=== PATIENT | male | born 1945 | race Caucasian/White ===

== ENCOUNTER 2018-05-31 14:36 | Emergency (ER) | payer MEDICARE, SELFPAY ==
[2018-05-31 14:37] VITALS: BP 134/60; PULSE 76; RESP 15; TEMP 37.2; O2SAT 96; BMI 32.6
[2018-05-31] MEDS: Ipratropium/Albuterol Sulfate 3 ML AMPUL.NEB INHALATION (15:11)
[2018-05-31 15:13] VITALS: PULSE 62; RESP 18; O2SAT 96
--- NOTE | 2018-05-31 15:28 | RAD_ITS ---
STUDY: X-RAY CHEST REASON FOR EXAM: Male, 73 years old. Cough. Shortness of breath. TECHNIQUE: PA and lateral views of the chest. COMPARISON: Comparison is made with prior study dated October 01, 2017. FINDINGS: Mild increased markings at the lung bases worse on the right side. This is suggestive of bibasilar atelectasis and/or infiltrate. Follow-up is recommended. There is no demonstrated pleural abnormality. Normal size heart. Normal mediastinum and [place]. Normal visualized pulmonary arteries. There is atherosclerotic calcification of the aortic arch with tortuosity. There are diffuse degenerative changes of the visualized thoracic spine. Normal visualized ribs, clavicles, and shoulders. There is no demonstrated abnormality of the visualized soft tissue structures of the upper abdomen. RAD/Chest PA and Lateral IMPRESSION: Increased markings at the lung bases. This is suggestive bibasilar atelectasis and/or early infiltrates. Worse on the right side Electronically Signed: Jerzy Gomez MD at 15:50 EDT Tel [phone], Service support ,
--- NOTE | 2018-05-31 16:06 | ED.VISSUMM ---
- ER Visit Summary Date of Service: 05/31/18 Chief Complaint: Cough and shortness of breath History of Present Illness: The patient is a 73 M who presents with cough and shortness of breath that has been getting worse over the past 2 weeks. Patient states he was fishing 2 weeks ago and developed a cough afterwards. Patient went to an urgent care and was given a prescription for amoxicillin. Patient states he completed the course of amoxicillin but does not feel any better. Patient states that he was told he probably needs a chest x-ray if he did not feel better after completing the amoxicillin. Patient denies any chest pain. Patient admits to some subjective chills. Patient denies fevers. Patient states he is coughing up some yellow sputum. Physical Examination: Vital signs are stable. Patient is afebrile. Patient is in no acute distress. Heart was regular rate and rhythm. Lungs show some expiratory wheezing bilaterally. There is good respiratory effort noted. There are no retractions noted. Oral mucosa is pink and moist. Neck is supple. There is no JVD noted. Abdomen is soft and nontender. The remaining physical exam is within normal limits. Test Results: Chest x-ray shows bibasilar atelectasis and possible infiltrate, worse on the right. Emergency Department Course and Treatment: Given the patient's symptoms this is most likely an infiltrate. Patient was given a prescription for Levaquin. Patient was instructed to follow-up with his primary care physician in 5-7 days. Patient understood and was agreeable with the plan. All questions were answered. Disposition: Discharge home Impression: Community-acquired pneumonia This note was generated with [employer] dictation software. It may contain incorrect words, spelling, and punctuation that were not noted in review of the chart prior to signing ED Disposition - Plan for ED Patient: Disposition: Home or Assisted Living Chief Complaint: Shortness of Breath Diagnosis: Community acquired pneumonia Instructions: ED Pneumonia Adult Prescriptions: Levofloxacin [Levaquin] 750 mg PO DAILY #7 tab Referrals: Von Roach DO [Primary Care Provider] -
== END 2018-05-31 16:27 | disposition home or self-care (01) ==
PROVIDERS: Emergency Provider Emergency Medicine; Family Provider Family Medicine; PCP Family Medicine
DX: J18.9 Pneumonia, unspecified organism (principal); Z79.82 Long term (current) use of aspirin; Z79.899 Other long term (current) drug therapy
CPT/HCPCS: 71046; 94640; 99281

== ENCOUNTER → 2018-07-26 07:26 | Outpatient (CLI) | payer MEDICARE, SELFPAY ==
[2018-07-26 07:47] LABS: Absolute Lymphocyte Count 1.93 X10^3/ul (0.83-4.51); Absolute Neutrophil Count 3.4 X10^3/uL (2.0-7.7); Basophil# 0.03 X10^3/uL; Basophil% 0.5 % (0-1); Eosinophil# 0.17 X10^3/uL; Eosinophils% 2.8 % (0-5); Hemoglobin 13.2 g/dl (13.0-16.5); Lymphocyte # 1.93 X10^3/ul (4.0); Lymphocyte % 31.7 % (19-41); Mean Corpuscular Hgb 31.6 pg (27.0-32.0); Mean Corpuscular Volume 95.7 fL (80-94); Mean Platelet Vol. 9.4 fl (6.2-12.0); Monocyte# 0.59 X10^3/uL; Monocyte% 9.7 % (0-10); Neutrophil # 3.36 X10^3/uL (2.7-7.7); Neutrophil % 55.3 % (47-70); POSITIVE COUNT NO; POSITIVE DIFFERENTIAL NO; POSITIVE MORPHOLOGY NO; Platelet Count 254 K/mm3 (150-450); RBC Distribution Width SD 47.8 fl (35.1-43.9); Red Blood Count 4.18 M/mm3 (4.6-6.2); White Blood Count 6.1 K/mm3 (4.4-11.0)
[2018-07-26 08:32] LABS: ALB/GLOB Ratio 0.8 RATIO (0.9-2.4); AST(SGOT) 12 U/L (15-37); Alanine Aminotransfer ALT/SGPT 23 U/L (16-61); Albumin, Serum 3.1 g/dL (3.2-5.0); Alkaline Phosphatase 33 U/L (45-117); Anion Gap 10 (5-15); BUN 15 mg/dL (7-18); BUN/Creat Ratio 11.1 RATIO (10-20); Calcium,Total 8.4 mg/dL (8.5-10.1); Chloride 108 mmol/L (98-107); Cholesterol 128 mg/dL (200); Creatinine, Serum 1.35 mg/dL (0.70-1.30); EST Glomerular Filtration Rate 55 mL/min (>60); Est Glom Filt Rate - Afr Amer 66 mL/min (>60); Glucose 114 mg/dL (74-106); High Density Lipoprotein 55 mg/dL; PSA,Total - Annual Screen 2.97 ng/mL (0.00-4.00); Potassium 4.4 mmol/L (3.5-5.1); Protein, Total 7.1 g/dL (6.4-8.2); Sodium Level 143 mmol/L (136-145); Thyroid Stim Hormone (TSH) 0.74 uIU/mL (0.358-3.74); Triglycerides 81 mg/dL; Very Low Density Lipoprotein 16 mg/dL (5-40)
== END ==
PROVIDERS: Family Provider Family Medicine; PCP Family Medicine; Visit Provider Family Medicine
DX: Z00.00 Encounter for general adult medical examination without abnormal findings (principal); E78.5 Hyperlipidemia, unspecified; I25.10 Atherosclerotic heart disease of native coronary artery without angina pectoris; I48.91 Unspecified atrial fibrillation; Z12.5 Encounter for screening for malignant neoplasm of prostate; E66.9 Obesity, unspecified
CPT/HCPCS: 36415; 80053; 80061; 84153; 84443; 85025; G0103

== ENCOUNTER → 2018-08-15 06:13 | Outpatient (CLI) | payer MEDICARE, SELFPAY ==
--- NOTE | 2018-08-15 09:26 | STRESSREP ---
Stress Test Report Date: 08/15/2018 Procedure: Pharmacologic stress nuclear imaging study Indications: Shortness of breath/dyspnea; CAD; PCI Consent: Per the patient Procedure: The patient underwent pharmacologic (Regadenoson) evaluation with a peak heart rate of 101 beats per minute (69 predicted maximal heart rate) and a peak blood pressure of 124/62 mmHg. The baseline ECG demonstrated normal sinus rhythm. The peak pharmacologic ECG demonstrated no obvious ECG changes. There were no cardiac dysrhythmias pretest, during pharmacologic infusion, or recovery. There was no complaint of chest discomfort during pharmacologic infusion or recovery. The examination was discontinued secondary to completion of protocol. Impression: 1. Pharmacologic (Regadenoson) evaluation 2. Peak pharmacologic ECG with no obvious ECG changes. 3. There were no cardiac dysrhythmias pretest, during pharmacologic infusion, or recovery 4. Nuclear images pending Myocardial perfusion imaging study: Technique: The patient was injected with 14.4 millicuries of technetium 99m Cardiolite and subsequently rest SPECT Cardiolite nuclear imaging was obtained in the horizontal long, vertical long, and short axis views. The patient underwent pharmacologic (Regadenoson) evaluation with a peak heart rate of 101 beats per minute (69 % percent predicted maximal heart rate) and a peak blood pressure of 124/62 mmHg. The patient was injected with 44.1 millicuries of technetium 99m Cardiolite and subsequently stress SPECT Cardiolite nuclear imaging was obtained in the horizontal long, vertical long, and short axis views. A gated Cardiolite study at peak stress was obtained. Interpretation: Rest and stress SPECT Cardiolite nuclear imaging status post realignment, normalization, and attenuation correction demonstrate at rest and stress the appearance of extracardiac/gastrointestinal tracer uptake and at rest a small area of diminished tracer uptake near the distal anterior segments which appears to improve and/or normalize following stress. There is end systolic thickening and brightening. The gated Cardiolite study demonstrates myocardial thickening and inward wall motion. The reported LVEF is 78 %. Impression: 1. Rest and stress SPECT Cardiolite nuclear imaging demonstrate findings compatible with extracardiac/gastrointestinal tracer uptake as well as myocardial perfusion changes at rest which appear to improve and/or normalize following stress appearing compatible shifting soft tissue attenuation/artifact with no myocardial perfusion changes considered diagnostic for associated stress-induced myocardial ischemia. 2. The gated Cardiolite study reports an LVEF of 78 %. This note was generated with Dragon dictation software. It may contain incorrect words, spelling, and punctuation that were not noted in checking the note before signing.
== END ==
PROVIDERS: Family Provider Family Medicine; PCP Family Medicine; Referring Provider Nurse Practitioner Family; Visit Provider Nurse Practitioner Family
DX: R07.9 Chest pain, unspecified (principal); I25.10 Atherosclerotic heart disease of native coronary artery without angina pectoris; R42 Dizziness and giddiness; I10 Essential (primary) hypertension; Z95.5 Presence of coronary angioplasty implant and graft; R06.09 Other forms of dyspnea
CPT/HCPCS: 78452; 93017; A9500; A4216; J2785

== ENCOUNTER → 2018-09-12 10:20 | Outpatient (CLI) | payer MEDICARE, SELFPAY ==
--- NOTE | 2018-09-12 10:22 | RAD_ITS ---
STUDY: X-RAY CHEST REASON FOR EXAM: Male, 73 years old. Recent pneumonia, dyspnea TECHNIQUE: PA and lateral views of the chest. COMPARISON: Prior study of 05/31/2018 FINDINGS: There are prominent fibrotic interstitial markings of the lung bases. There is a 1.1 cm calcified granuloma of the right mid lung field, stable in the interval. There is hemidiaphragmatic findings suggestive of COPD. Normal size heart. Normal mediastinum and [place]. Normal visualized pulmonary arteries. There are calcified plaques of the aortic arch. There are diffuse degenerative changes of the visualized thoracic spine. Normal visualized ribs, clavicles, and shoulders. There is a fusion plate overlying the lower cervical region. There is no demonstrated abnormality of the visualized soft tissue structures of the upper abdomen. RAD/Chest PA and Lateral IMPRESSION: 1. Prominent interstitial fibrotic markings of the lung bases. 2. 1.1 cm calcified granuloma of the right mid lung field. 3. Calcified plaques of the aortic arch. 4. Fusion plate overlying the lower cervical region. 5. Diffuse degenerative changes of the thoracic spine. 6. No acute cardiopulmonary disease process is seen. Findings are similar to the previous study. Electronically Signed: Ruel Cintron MD at 17:10 EDT , Service support ,
[2018-09-12 11:19] LABS: Absolute Neutrophil Count 3.8 X10^3/uL (2.0-7.7); Basophil# 0.02 X10^3/uL; Basophil% 0.3 % (0-1); Eosinophil# 0.14 X10^3/uL; Eosinophils% 2.2 % (0-5); Hematocrit 38.6 % (40-54); Hemoglobin 12.3 g/dl (13.0-16.5); Lymphocyte % 27.2 % (19-41); Mean Corp Hgb Conc 31.9 g/gl (32-36); Mean Corpuscular Volume 97.2 fL (80-94); Mean Platelet Vol. 10.5 fl (6.2-12.0); Monocyte# 0.58 X10^3/uL; Monocyte% 9.3 % (0-10); Neutrophil # 3.81 X10^3/uL (2.7-7.7); Platelet Count 198 K/mm3 (150-450); RBC Distribution Width CV 14.3 % (11.6-14.6); RBC Distribution Width SD 51.1 fl (35.1-43.9); Red Blood Count 3.97 M/mm3 (4.6-6.2); White Blood Count 6.3 K/mm3 (4.4-11.0)
[2018-09-12 11:20] LABS: POSITIVE COUNT NO; POSITIVE DIFFERENTIAL NO; POSITIVE MORPHOLOGY NO
[2018-09-12 11:42] LABS: Anion Gap 7 (5-15); BUN 15 mg/dL (7-18); BUN/Creat Ratio 10.2 RATIO (10-20); Calcium,Total 8.1 mg/dL (8.5-10.1); Chloride 108 mmol/L (98-107); Creatinine, Serum 1.47 mg/dL (0.70-1.30); EST Glomerular Filtration Rate 50 mL/min (>60); Est Glom Filt Rate - Afr Amer 60 mL/min (>60); Glucose 101 mg/dL (74-106); Potassium 4.1 mmol/L (3.5-5.1); Sodium Level 142 mmol/L (136-145)
[2018-09-12 11:51] LABS: BNP,B-Type NATRIURETIC PEPTIDE 249.6 pg/mL (0-100)
== END ==
PROVIDERS: Family Provider Family Medicine; PCP Family Medicine; Referring Provider Physician Assistant Medical; Visit Provider Physician Assistant Medical
DX: I10 Essential (primary) hypertension (principal); I25.10 Atherosclerotic heart disease of native coronary artery without angina pectoris; I48.0 Paroxysmal atrial fibrillation; R06.09 Other forms of dyspnea
CPT/HCPCS: 36415; 71046; 80048; 83880; 85025

== ENCOUNTER → 2018-09-25 06:34 | Outpatient (CLI) | payer MEDICARE, SELFPAY ==
--- NOTE | 2018-09-25 07:30 | ECHOD_ITS ---
Reason For Study: SOB Procedure This was a 2D Doppler, Color Flow transthoracic echocardiogram. The exam was of adequate technical quality. Exam performed in department. Left Ventricle Normal LV size. Left ventricular systolic function is normal. The estimated ejection fraction is 65 %. No regional wall motion abnormalities noted. Right Ventricle Normal RV size. Normal systolic function. Atria The left atrium is mildly enlarged. Normal right atrium. No doppler evidence for ASD. Mitral Valve There is no mitral annular calcification. Normal mitral valve. Mild (1+) mitral valve insufficiency. Tricuspid Valve Normal tricuspid valve. Mild tricuspid valve insufficiency. Right ventricular systolic pressure estimated to be 28 mmHg. Aortic Valve Trisinus/trileaflet aortic valve. Mild focal aortic valve thickening. Mild focal aortic valve calcification. Aortic sclerosis, no stenosis. Pulmonic Valve The pulmonic valve is not well visualized. Great Vessels Normal sized aortic root. Pericardium/Pleural No pericardial effusion. MMode/2D Measurements & Calculations LVIDd: 4.5 cm IVSd: 0.86 cm LVOT diam: 2.1 cm LVIDs: 2.5 cm LVPWd: 0.92 cm LVOT area: 3.4 cm2 RVDd: 3.6 cm FS: 44.7 % Ao root diam: 3.0 cm LAV(MOD-bp): 68.5 ml EDV(MOD-sp4): 91.8 ml LAV(MOD-bp) Indexed: 32.5 ml/m2 ESV(MOD-sp4): 29.4 ml LAV(MOD-sp2): 52.1 ml EF(MOD-sp4): 68.0 % LAV(MOD-sp4): 71.2 ml EDV(MOD-sp2): 101.9 ml SV(MOD-sp4): 62.4 ml SV(MOD-sp2): 62.9 ml EF(MOD-sp2): 61.7 % LA A4 area: 24.0 cm2 LA dimension(2D): 3.9 cm RA A4 area: 15.7 cm2 Doppler Measurements & Calculations MV E max rico: 76.7 cm/sec Lat Peak E' Rico: 11.4 cm/sec Med Peak E' Rico: 9.6 cm/sec MV A max rico: 42.0 cm/sec E/E' lat: 6.7 E/E' med: 8.0 MV E/A: 1.8 Ao V2 max: 211.2 cm/sec LV V1 max: 132.5 cm/sec SV(LVOT): 114.2 ml Ao max P.8 mmHg LV V1 max P.0 mmHg Ao V2 mean: 139.0 cm/sec LV V1 mean P.6 mmHg Ao mean P.7 mmHg LV V1 mean: 90.2 cm/sec Ao V2 VTI: 51.1 cm LV V1 VTI: 33.3 cm ELIZABETH(I,D): 2.2 cm2 ELIZABETH(V,D): 2.1 cm2 PA V2 max: 105.8 cm/sec TR max rico: 246.6 cm/sec TR max P.5 mmHg Interpretation Summary Left ventricular systolic function is normal. The estimated ejection fraction is 65 %. The left atrium is mildly enlarged. Mild (1+) mitral valve insufficiency. Mild tricuspid valve insufficiency. Aortic sclerosis, no stenosis. Right ventricular systolic pressure estimated to be 28 mmHg. Transmitral diastolic flow velocities suggest diastolic dysfunction (pseudonormal pattern). Ordering Physician: Mayelin Schultz/Luis Reese Referring Physician: Mayelin Schultz Performed By: Nicky Zhang RDCS
--- NOTE | 2018-09-25 13:16 | PFT ---
INTRODUCTION: The patient is a 73-year-old male that presents for pulmonary function testing secondary to a diagnosis of dyspnea on exertion. Respiratory therapy reports good patient effort. Bronchodilators were used during testing. INTERPRETATION: Forced expiration spirometry demonstrates no evidence of a large airways obstructive ventilatory defect. There was no significant response to aerosolized bronchodilators. Spirograms are of good quality and plateau normally. Body plethysmography was performed and reveals lung volumes to be within normal limits. Diffusing capacity by single breath CO is also within normal limits at 96% of predicted. IMPRESSION: Grossly normal pulmonary function testing.
== END ==
PROVIDERS: Family Provider Family Medicine; PCP Family Medicine; Referring Provider Physician Assistant Medical; Visit Provider Physician Assistant Medical
DX: R06.09 Other forms of dyspnea (principal); I10 Essential (primary) hypertension; I25.10 Atherosclerotic heart disease of native coronary artery without angina pectoris; I48.0 Paroxysmal atrial fibrillation
CPT/HCPCS: 93306; 94060; 94726; 94729

== ENCOUNTER → 2018-09-26 15:36 | Outpatient (CLI) | payer MEDICARE, SELFPAY ==
[2018-09-26 16:19] LABS: International Normalized Ratio > 19.5; Prothrombin Time (Protime)PT. > 120.0 SECONDS (11.7-14.9)
== END ==
PROVIDERS: Family Provider Family Medicine; PCP Family Medicine; Referring Provider Internal Medicine Cardiovascular Disease; Visit Provider Internal Medicine Cardiovascular Disease
DX: Z79.01 Long term (current) use of anticoagulants (principal)
CPT/HCPCS: 36415; 85610

== ENCOUNTER 2018-09-26 17:25 | Emergency (ER) | payer MEDICARE, SELFPAY ==
[2018-09-26 17:26] VITALS: BP 134/64; PULSE 50; RESP 17; TEMP 36.9; O2SAT 98; BMI 34.4
--- NOTE | 2018-09-26 17:42 | ED.VISSUMM ---
- ER Visit Summary Date of Service: 09/26/18 Chief Complaint: Elevated INR History of Present Illness: The patient is a 73 M who has an elevated INR. He was switched from Eliquis to warfarin 1 month ago. He was taking it twice a day instead of daily. He had his INR checked today and it was 19. He has had some bleeding from his mouth and gums when he wakes up in the morning. He does admit to some hematuria. He denies any other bleeding. Denies any other symptoms. Physical Examination: Vital signs reviewed. HEENT exam unremarkable. There is no bleeding from the mouth or gums at this time. Heart is regular rate and rhythm without murmurs. Lungs are clear to auscultation. Abdomen is soft and nontender. Extremities reveal no edema. Skin exam normal. Neurologic exam normal. Test Results: Hemoglobin normal. Creatinine 1.49. INR greater than 19.5. Urinalysis reveals trace blood Emergency Department Course and Treatment: Patient was treated with vitamin K here. He has no bleeding at this time. According to guidelines he should cease his warfarin and have 1 dose of vitamin K. He does not want to stay in the hospital. I feel that that is reasonable because he has no bleeding and looks well. He will call his cardiology office tomorrow for follow-up INR. Treatment Plan: [] Disposition: Discharge Impression: Elevated INR Medication error by patient This note was generated with [employer] dictation software. It may contain incorrect words, spelling, and punctuation that were not noted in review of the chart prior to signing ED Disposition - Plan for ED Patient: Chief Complaint: Abn Labs Referrals: Von Roach DO [Primary Care Provider] -
[2018-09-26 18:06] LABS: Glucose, Dipstick Normal (Normal); Ketone-Dipstick 5 mg/dl (Negative); Leukocyte Esterase-Dipstick 25 /ul (Negative); Nitrite-Dipstick Negative (Negative); Occult Blood-Urine 50 /ul (Negative); Protein-Dipstick 30 mg/dl (Negative); Specific Gravity, Urine 1.025 (1.002-1.030); Urine Urobilinogen 1 mg/dl (Normal)
[2018-09-26 18:13] LABS: Absolute Lymphocyte Count 1.69 X10^3/ul (0.83-4.51); Absolute Neutrophil Count 2.9 X10^3/uL (2.0-7.7); Basophil# 0.03 X10^3/uL; Basophil% 0.6 % (0-1); Eosinophil# 0.19 X10^3/uL; Eosinophils% 3.6 % (0-5); Hematocrit 42.4 % (40-54); Hemoglobin 13.9 g/dl (13.0-16.5); Lymphocyte # 1.69 X10^3/ul (4.0); Lymphocyte % 31.8 % (19-41); Mean Corp Hgb Conc 32.8 g/gl (32-36); Mean Corpuscular Hgb 31.4 pg (27.0-32.0); Mean Corpuscular Volume 95.9 fL (80-94); Mean Platelet Vol. 9.8 fl (6.2-12.0); Monocyte# 0.56 X10^3/uL; Monocyte% 10.5 % (0-10); Neutrophil # 2.85 X10^3/uL (2.7-7.7); Neutrophil % 53.5 % (47-70); Platelet Count 194 K/mm3 (150-450); RBC Distribution Width CV 14.2 % (11.6-14.6); RBC Distribution Width SD 50.4 fl (35.1-43.9); Red Blood Count 4.42 M/mm3 (4.6-6.2); White Blood Count 5.3 K/mm3 (4.4-11.0)
[2018-09-26 18:16] LABS: POSITIVE COUNT NO; POSITIVE DIFFERENTIAL NO; POSITIVE MORPHOLOGY NO
[2018-09-26 18:20] LABS: Color, Urine Yellow (Yellow); Urine Bilirubin Dipstick 1 mg/dL (Negative); Urine Clarity Clear (Clear)
[2018-09-26 18:22] LABS: Red Blood Cells-Urine 0-5 SEEN /hpf (0-5); Squamous Epithelial Cells - UA 0-5 SEEN /hpf (0-5); White Blood Cells 0-5 SEEN /hpf (0-5)
[2018-09-26 18:23] LABS: Bacteria RARE /hpf (None Seen); Mucous, Urine 1+ /hpf (<or=2+)
[2018-09-26 18:32] LABS: Anion Gap 6 (5-15); BUN 16 mg/dL (7-18); BUN/Creat Ratio 10.7 RATIO (10-20); Calcium,Total 8.3 mg/dL (8.5-10.1); Chloride 109 mmol/L (98-107); Creatinine, Serum 1.49 mg/dL (0.70-1.30); EST Glomerular Filtration Rate 49 mL/min (>60); Est Glom Filt Rate - Afr Amer 59 mL/min (>60); Estimated Creatinine Clearance 40.67 ml/min; Glucose 101 mg/dL (74-106); Potassium 3.9 mmol/L (3.5-5.1); Sodium Level 141 mmol/L (136-145)
[2018-09-26 19:06] LABS: Prothrombin Time (Protime)PT. > 120.0 SECONDS (11.7-14.9)
[2018-09-26 19:11] LABS: International Normalized Ratio > 19.5
--- NOTE | 2018-09-26 19:14 | ED.RN ---
LAB CALLED FOR PT GREATER THEN 120 AND INR GREATER THEN 19.5. AWARE. LAB STATES RESULTS ARE THE SAME EARLIER
--- NOTE | 2018-09-26 19:36 | ED.DEP ---
ED Disposition - Plan for ED Patient: Disposition: Home or Assisted Living Chief Complaint: Abn Labs Instructions: Taking?Coumadin Referrals: Von Roach DO [Primary Care Provider] - Additional Instructions: Do not take warfarin Call cardiology office tomorrow for a follow-up INR
[2018-09-26 20:18] VITALS: BP 123/65; PULSE 54; PULSE 55; RESP 16; O2SAT 96; O2SAT 97
[2018-09-26] MEDS: Phytonadione (Vit K) 10 MG/ML Ampul PO (20:44)
== END 2018-09-26 20:46 | disposition home or self-care (01) ==
PROVIDERS: Emergency Provider Emergency Medicine; Family Provider Family Medicine; PCP Family Medicine
DX: T45.511A Poisoning by anticoagulants, accidental (unintentional), initial encounter (principal); R79.1 Abnormal coagulation profile; I48.0 Paroxysmal atrial fibrillation; Z79.01 Long term (current) use of anticoagulants; Y92.009 Unspecified place in unspecified non-institutional (private) residence as the place of occurrence of the external cause
CPT/HCPCS: 36415; 80048; 81001; 85025; 85610; 99285; A4216

== ENCOUNTER → 2018-09-27 13:16 | Outpatient (CLI) | payer MEDICARE, SELFPAY ==
[2018-09-27 13:45] LABS: Prothrombin Time (Protime)PT. 22.6 SECONDS (11.7-14.9)
== END ==
PROVIDERS: Family Provider Family Medicine; PCP Family Medicine; Referring Provider Internal Medicine Cardiovascular Disease; Visit Provider Internal Medicine Cardiovascular Disease
DX: I48.0 Paroxysmal atrial fibrillation (principal); Z79.01 Long term (current) use of anticoagulants
CPT/HCPCS: 36415; 85610

== ENCOUNTER 2018-09-30 13:38 | Outpatient (RCR) | payer MEDICARE, SELFPAY ==
[2018-09-30 17:18] LABS: International Normalized Ratio 2.3; Prothrombin Time (Protime)PT. 25.5 SECONDS (11.7-14.9)
== END 2018-10-18 09:49 ==
LOC: LAB 13:38
PROVIDERS: Family Provider Family Medicine; PCP Family Medicine; Referring Provider Internal Medicine Cardiovascular Disease; Visit Provider Internal Medicine Cardiovascular Disease
DX: I48.0 Paroxysmal atrial fibrillation (principal); I10 Essential (primary) hypertension; Z79.01 Long term (current) use of anticoagulants
CPT/HCPCS: 36415; 85610

== ENCOUNTER 2018-10-07 11:51 | Outpatient (RCR) | payer MEDICARE, SELFPAY ==
[2018-10-07 14:13] LABS: International Normalized Ratio 2.2; Prothrombin Time (Protime)PT. 24.4 SECONDS (11.7-14.9)
== END 2018-10-18 09:50 | disposition home or self-care (01) ==
LOC: LAB 11:51
PROVIDERS: Family Provider Family Medicine; PCP Family Medicine; Referring Provider Internal Medicine Cardiovascular Disease; Visit Provider Internal Medicine Cardiovascular Disease
DX: I48.0 Paroxysmal atrial fibrillation (principal); I10 Essential (primary) hypertension; Z79.01 Long term (current) use of anticoagulants
CPT/HCPCS: 36415; 85610

== ENCOUNTER → 2018-10-28 10:23 | Outpatient (CLI) | payer MEDICARE, SELFPAY ==
[2018-10-24 09:14] VITALS: BMI 35.5
[2018-10-28 11:45] LABS: International Normalized Ratio 1.6; Prothrombin Time (Protime)PT. 19.4 SECONDS (11.7-14.9)
== END ==
PROVIDERS: Family Provider Family Medicine; PCP Family Medicine; Referring Provider Physician Assistant Medical; Visit Provider Physician Assistant Medical
DX: I48.0 Paroxysmal atrial fibrillation (principal); I10 Essential (primary) hypertension; Z79.01 Long term (current) use of anticoagulants
CPT/HCPCS: 36415; 85610

== ENCOUNTER 2018-11-15 08:12 | Outpatient (RCR) | payer MEDICARE, SELFPAY ==
[2018-10-24 09:14] VITALS: BMI 35.5
[2018-10-24 11:32] LABS: International Normalized Ratio 1.7; Prothrombin Time (Protime)PT. 20.2 SECONDS (11.7-14.9)
[2018-11-05 13:13] LABS: International Normalized Ratio 1.9; Prothrombin Time (Protime)PT. 21.5 SECONDS (11.7-14.9)
== END 2018-11-15 09:00 | disposition home or self-care (01) ==
LOC: LAB 08:12
PROVIDERS: Family Provider Family Medicine; PCP Family Medicine; Referring Provider Physician Assistant Medical; Visit Provider Physician Assistant Medical
DX: I40.8 Other acute myocarditis (principal); I10 Essential (primary) hypertension; Z79.01 Long term (current) use of anticoagulants
CPT/HCPCS: 36415; 85610

== ENCOUNTER → 2019-04-10 | Outpatient (CLI) | payer MEDICARE, SELFPAY ==
[2019-04-10 09:22] VITALS: BMI 35.5
[2019-04-10 11:07] LABS: AST(SGOT) 15 U/L (15-37); Alanine Aminotransfer ALT/SGPT 36 U/L (16-61); Albumin, Serum 2.9 g/dL (3.2-5.0); Alkaline Phosphatase 38 U/L (45-117); Bilirubin, Direct 0.12 mg/dL (0.00-0.30); Globulin 3.9 g/dL (2.2-4.2); Protein, Total 6.8 g/dL (6.4-8.2); T4 Free Direct 1.33 ng/dL (0.76-1.46); Thyroid Stim Hormone (TSH) 0.71 uIU/mL (0.358-3.74)
== END | disposition home or self-care (01) ==
PROVIDERS: Family Provider Family Medicine; PCP Family Medicine; Referring Provider Physician Assistant Medical; Visit Provider Physician Assistant Medical
DX: R06.09 Other forms of dyspnea (principal); I48.0 Paroxysmal atrial fibrillation; Z79.899 Other long term (current) drug therapy
CPT/HCPCS: 36415; 80076; 84439; 84443

== ENCOUNTER → 2019-09-22 | Outpatient (CLI) | payer MEDICARE, SELFPAY ==
[2019-09-22 09:31] VITALS: BMI 34.7
--- NOTE | 2019-09-22 10:31 | RAD_ITS ---
STUDY: X-RAY CHEST REASON FOR EXAM: Male, 74 years old. Amiodarone therapy since 2012 TECHNIQUE: PA and lateral views of the chest. COMPARISON: Prior study of 09/12/2018 FINDINGS: There is prominence of the interstitial pattern of the right lung base. Small calcified granuloma of the right midlung field. There is no demonstrated pleural abnormality. Normal size heart. Normal mediastinum and [place]. Normal visualized pulmonary arteries. There are calcified plaques of the thoracic aorta. There are diffuse degenerative changes of the visualized thoracic spine. Normal visualized ribs, clavicles, and shoulders. A fusion plate is seen projecting over the lower cervical spine. There is no demonstrated abnormality of the visualized soft tissue structures of the upper abdomen. RAD/Chest PA and Lateral IMPRESSION: 1. Prominent interstitial pattern of the right lung base, stable in the interval. 2. Small calcified granuloma of the right midlung field. 3. Calcified plaques of the thoracic aorta. 4. Fusion plate projecting over the lower cervical spine. Electronically Signed: Ruel Cintron MD at 22:31 EST , Service support ,
[2019-09-22 12:45] LABS: AST(SGOT) 16 U/L (15-37); Alanine Aminotransfer ALT/SGPT 27 U/L (16-61); Albumin, Serum 2.9 g/dL (3.2-5.0); Alkaline Phosphatase 34 U/L (45-117); Bilirubin, Direct 0.14 mg/dL (0.00-0.30); Cholesterol 144 mg/dL (200); High Density Lipoprotein 49 mg/dL; Protein, Total 6.9 g/dL (6.4-8.2); T4 Free Direct 1.38 ng/dL (0.76-1.46); Thyroid Stim Hormone (TSH) 0.71 uIU/mL (0.358-3.74); Triglycerides 76 mg/dL; Very Low Density Lipoprotein 15 mg/dL (5-40)
== END | disposition home or self-care (01) ==
PROVIDERS: Family Provider Family Medicine; PCP Family Medicine; Referring Provider Internal Medicine Cardiovascular Disease; Visit Provider Internal Medicine Cardiovascular Disease
DX: E78.00 Pure hypercholesterolemia, unspecified (principal); Z79.899 Other long term (current) drug therapy
CPT/HCPCS: 36415; 71046; 80061; 80076; 84439; 84443

== ENCOUNTER → 2019-09-30 | Outpatient (CLI) | payer MEDICARE, SELFPAY ==
[2019-09-22 09:31] VITALS: BMI 34.7
--- NOTE | 2019-09-30 14:27 | PFTCOMP_ITS ---
COMPLETE PULMONARY FUNCTION TEST INTERPRETATION Brief HPI: Patient is a 74 year old male, currently under the care of Dr. Reese, who presents to [facility] for complete pulmonary function tests secondary to diagnosis of high risk med use. Respiratory therapist reports good effort and reproducible results. Interpretation: Forced expiration spirometry shows no large airways obstructive ventilatory defect with an FEV1 of 115% predicted. There is no significant bronchodilator response by strict ATS criteria. Spirograms are of good quality and plateau normally. The respiratory flow volume loop shows a normal pattern. Lung volumes by body plethysmography show a normal total lung capacity at 6.71 L, 113% predicted. All other lung volumes are within normal limits. Diffusion capacity by carbon monoxide is normal at 79% predicted. The airway resistance is normal. Compared to previous pulmonary function tests from 09/25/2018, there is been a significant decrease in DLCO by 17%. Impression: Pulmonary function tests are grossly within normal limits, but there has been a 17% decrease in DLCO compared to previous study. Consider chest imaging if patient is still on amiodarone. Pulmonary edema would also be a consideration.
== END | disposition home or self-care (01) ==
LOC: PSN 07:10
PROVIDERS: Family Provider Family Medicine; PCP Family Medicine; Referring Provider Internal Medicine Cardiovascular Disease; Visit Provider Internal Medicine Cardiovascular Disease
DX: Z79.899 Other long term (current) drug therapy (principal)
CPT/HCPCS: 94060; 94726; 94729

== ENCOUNTER 2020-07-08 08:18 | Observation (INO) | payer MEDICARE, SELFPAY ==
[2019-09-22 09:31] VITALS: BMI 34.7
[2020-07-08] VITALS (9 sets, daily range): BP systolic 142–169; BP diastolic 65–111; PULSE 52–75; RESP 11–16; TEMP 36.2–36.6; O2SAT 96–98; BMI 35.5; BMI 34.7
--- NOTE | 2020-07-08 08:24 | CT_ITS ---
STUDY: CT BRAIN WITHOUT CONTRAST REASON FOR EXAM: Male, 75 years old. RT SIDED FACIAL DROOP, SLURRED SPEECH RADIATION DOSAGE (If Supplied By Facility): CTDIvol = ( 44.99 ) mGy, DLP = ( 779.24 ) mGycm TECHNIQUE: Transaxial CT imaging of the brain was performed without administration of intravenous contrast material. Individualized dose optimization techniques were used for this CT. COMPARISON: No relevant priors. FINDINGS: Normal soft tissue structures. Normal calvarium. There is mild cerebral atrophy with widening of the extra-axial spaces and ventricular dilatation. There are areas of decreased attenuation within the white matter tracts of the supratentorial brain, consistent with microvascular disease changes. Normal basal ganglia and thalami. Normal brainstem. Normal cerebellum. There is no intracranial hemorrhage. There are no findings of an acute ischemic infarction. Normal visualized paranasal sinuses. CT/Brain/Head without Contrast IMPRESSION: Chronic involutional changes of the brain. Electronically Signed: Esau Mcbride MD at 8:42 EDT Tel , Service support ,
--- NOTE | 2020-07-08 08:24 | EKG12_ITS ---
Test Reason : Blood Pressure : / mmHG Vent. Rate : 063 BPM Atrial Rate : 063 BPM P-R Int : 214 ms QRS Dur : 096 ms QT Int : 454 ms P-R-T Axes : 060 033 052 degrees QTc Int : 464 ms Sinus rhythm with 1st degree A-V block Otherwise normal ECG Confirmed by DANIEL ESCOBAR, YANNA ([id number]), newspaper editor managing MILLI SHEPPARD ([id number]) on 07/16/2020 11:15:40 A M Referred By: MARIAN Confirmed By:ANNIKA SANCHEZ MD
--- NOTE | 2020-07-08 08:27 | CT_ITS ---
STUDY: CTA HEAD AND NECK WITH CONTRAST REASON FOR EXAM: Male, 75 years old. stroke. Rt facial droop RADIATION DOSAGE (If Supplied By Facility): CTDIvol = ( 21.26 ) mGy, DLP = ( 619.43 ) mGycm TECHNIQUE: CT angiography was performed with a multi-detector CT scanner. Data acquisition was obtained from the skull base through the vertex following intravenous administration of Isovue 300 100ml. MIP images were reconstructed from the axial data set. Post-processing of the angiographic images was performed, with multiplanar reformation and 3D reconstruction. Individualized dose optimization techniques were used for this CT. COMPARISON: No relevant priors. FINDINGS: Normal bilateral petrous carotid arteries. There is calcified plaque formation of the right cavernous carotid artery, without a cross-sectional luminal stenosis. There is calcified plaque formation of the left cavernous carotid artery, without a cross-sectional luminal stenosis. Normal right A1 segments of the anterior cerebral artery. Normal left A1 segments of the anterior cerebral artery. Normal intact anterior communicating artery (ACOM). Normal bilateral A2 segments of the anterior cerebral arteries. Normal right M1 and M2 segments of the middle cerebral arteries, with a normal M1 bifurcation. Normal left M1 and M2 segments of the middle cerebral arteries, with a normal M1 bifurcation. Normal right posterior communicating artery (PCOM). Normal left posterior communicating artery (PCOM). Normal bilateral vertebral arteries. Normal basilar artery with a normal basilar bifurcation. The visualized bilateral superior cerebellar (SCA) arteries are normal. Normal bilateral P1, P2 and visualized P3 segments of the posterior cerebral arteries. There is no demonstrated aneurysm of the [place]. There is no demonstrated abnormality of the visualized brain. AORTIC ARCH: Normal visualized aortic arch. Normal origins of the brachiocephalic, left common carotid, and left subclavian arteries. RIGHT CAROTID ARTERIES: Normal right common carotid artery (CCA). There is mild atherosclerotic plaque formation with minimal narrowing of the right carotid bulb. Normal origin of the right internal carotid (ICA) artery without a hemodynamically significant stenosis. Normal visualized cervical portion of the right internal carotid artery. Normal origin of the right external carotid artery (ECA). LEFT CAROTID ARTERIES: Normal left common carotid artery (CCA). There is mild atherosclerotic plaque formation with minimal narrowing of the left carotid bulb. Normal origin of the left internal carotid (ICA) artery without a hemodynamically significant stenosis. Normal visualized cervical portion of the left internal carotid artery. Normal origin of the left external carotid artery (ECA). VERTEBRAL ARTERIES: Normal bilateral vertebral arteries. CT/CTA Head AND Neck W/ Contrast IMPRESSION: Normal CTA Head and neck with contrast. Electronically Signed: Esau Mcbride MD at 8:51 EDT Tel , Service support ,
[2020-07-08 08:52] LABS: Absolute Lymphocyte Count 1.66 X10^3/uL (0.83-4.51); Basophil# 0.02 X10^3/uL; Basophil% 0.4 % (0-1); Eosinophil# 0.13 X10^3/uL; Eosinophils% 2.4 % (0-5); Hematocrit 37.7 % (40-54); Hemoglobin 12.2 g/dL (13.0-16.5); Lymphocyte # 1.66 X10^3/ul (4.0); Lymphocyte % 30.9 % (19-41); Mean Corp Hgb Conc 32.4 g/dL (32-36); Mean Corpuscular Hgb 32.4 pg (27.0-32.0); Mean Platelet Vol. 9.5 fl (6.2-12.0); Monocyte# 0.54 X10^3/uL; Monocyte% 10.1 % (0-10); NRBC Flagged by Analyzer 0 % (0-5); Neutrophil # 3.01 X10^3/uL (2.7-7.7); Platelet Count 200 K/mm3 (150-450); RBC Distribution Width CV 12.9 % (11.6-14.6); RBC Distribution Width SD 46.8 fl (35.1-43.9); Red Blood Count 3.77 M/mm3 (4.6-6.2); White Blood Count 5.4 K/mm3 (4.4-11.0)
[2020-07-08 08:55] LABS: Bedside Glucose 130 mg/dL (70-110)
--- NOTE | 2020-07-08 09:00 | RAD_ITS ---
STUDY: X-RAY CHEST REASON FOR EXAM: Male, 75 years old. STROKE SX TECHNIQUE: Single AP portable view of the chest. COMPARISON: 09/22/2019 FINDINGS: The lungs are clear and expanded. There is no demonstrated pleural abnormality. Normal size heart. Normal mediastinum and [place]. Normal visualized pulmonary arteries. Normal visualized aortic arch and descending thoracic aorta. Normal visualized thoracic spine. Normal visualized ribs, clavicles, and shoulders. There is no demonstrated abnormality of the visualized soft tissue structures of the upper abdomen. RAD/Chest 1 View IMPRESSION: Normal x-ray examination of the chest. Electronically Signed: Esau Mcbride MD at 9:30 EDT Tel , Service support ,
[2020-07-08 09:02] LABS: International Normalized Ratio 1.5; Prothrombin Time (Protime)PT. 17.3 SECONDS (11.7-14.9)
[2020-07-08 09:03] LABS: Partial Thromboplast Time 32.3 Seconds (24.1-36.2)
[2020-07-08 09:08] LABS: Anion Gap 4 (5-15); BUN 19 mg/dL (7-18); BUN/Creat Ratio 13.9 RATIO (10-20); Chloride 110 mmol/L (98-107); Creatinine, Serum 1.37 mg/dL (0.70-1.30); EST Glomerular Filtration Rate 54 mL/min (>60); Est Glom Filt Rate - Afr Amer 65 mL/min (>60); Estimated Creatinine Clearance 42.89 ml/min; Glucose 129 mg/dL (74-106); Sodium Level 140 mmol/L (136-145)
--- NOTE | 2020-07-08 09:11 | ED.VISSUMM ---
- ER Visit Summary Date of Service: 07/08/20 Chief Complaint: Right facial droop History of Present Illness: The patient is a 75 M facial droop presenting with right facial droop. He states he went to bed at 1130pm last night normal. He woke up at 7:30 AM and had right facial droop. He states when he tries to eat or drink the liquid comes out of the right side of his mouth. He denies weakness. Denies change in vision or speech. Denies difficulty with ambulation. Denies dizziness. Denies chest pain or shortness of breath. He is on Eliquis for history of A. fib. No history of previous CVA. Physical Examination: Vitals are stable. Blood pressure 169/111. Patient is afebrile. Alert no acute distress. HEENT exam is unremarkable. Neck is supple. Lungs are clear and equal bilaterally. Heart is regular rate and rhythm. Abdomen is soft nontender nondistended. Extremities are unremarkable. Skin is warm and dry. NIH 2, right facial droop, right face and arm decreased sensation Remainder of exam is unremarkable. Emergency Department Course and Treatment: Stroke team was called on patient's arrival. He is not a TPA candidate due to onset of symptoms and taking Eliquis. [facility] neurology was consulted. They recommend CTA head and neck to rule out LVO. If no LVO recommend admission for MRI and further stroke work-up. Discussed possibility of Hewitt's palsy with neurology. Patient also has right arm decreased sensation so he will be worked up for stroke initially. He does have slight asymmetry of his forehead wrinkling. Repeat blood pressure 142/65. CBC, chemistries unremarkable other than creatinine 1.37. INR 1.5. Troponin is negative. EKG is sinus rhythm rate of 63 with no acute ischemic changes. Discussed with hospitalist for observation. Disposition: Observation Impression: Right facial droop, right face and arm paresthesia This note was generated with [employer] dictation software. It may contain incorrect words, spelling, and punctuation that were not noted in review of the chart prior to signing ED Disposition - Plan for ED Patient: Disposition: Acute Care [facility]
--- NOTE | 2020-07-08 10:06 | NURSING ---
105 pcu rt facial droop, paresthesia devin
--- NOTE | 2020-07-08 10:07 | NURSING ---
PCU OBS AFIB WITH RVR, GENERALIZED WEAKNESS
--- NOTE | 2020-07-08 10:52 | HP.PCM_ITS ---
History of Present Illness Date of Admission: 07/08/20 Chief Complaint: right facial droop The patient is a 75 year old M was in his normal state of health got up this morning and noticed right facial numbness and facial droop. Had no other symptoms. Presented to the emergency room for evaluation. Underwent a stroke work-up was unremarkable but the concern was for an underlying stroke and I recommend additional work-up. Patient is never had any symptoms like this before never had a stroke before. 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 Harrison Butler, DO) GERD (gastroesophageal reflux disease) (Chronic) K21.9 CKD (chronic kidney disease) (Chronic) N18.9 Presence of stent in coronary artery (Chronic) Onset Date: ~09/24/13 Z95.5 PCI/MELLISA- to 1st diagonal & 3rd obtuse marginal 09/24/13 Pure hypercholesterolemia (Chronic) E78.00 Atherosclerosis of [place] coronary artery of [place] heart without angina pectoris (Chronic) I25.10 PCI-stent to 1st diagonal & 3rd obtuse marginal 10/01; Other retirement (current) drug therapy (Chronic) Z79.899 Daytime somnolence (Chronic) R40.0 Hyperlipidemia with target low density lipoprotein (LDL) cholesterol less than 70 mg/dL (Chronic) E78.5 Essential hypertension (Chronic) I10 Paroxysmal atrial fibrillation (Chronic) I48.0 Schatzki's ring K22.2 Dilatation 0515 BPH (benign prostatic hyperplasia) N40.0 Atypical chest pain Dizziness (Resolved) R42 Hypoalbuminemia (Resolved) E88.09 Hypocalcemia (Resolved) E83.51 Impaired fasting glucose (Resolved) R73.01 Near syncope Allergies No Known Allergies Allergy (Verified 07/08/20 08:34) Home Medications: Ambulatory Orders Medication Instructions Recorded Omeprazole [Prilosec] 40 mg PO DAILY 10/01/17 Terazosin HCl 10 mg PO QHS 10/01/17 furosemide 40 mg tablet 40 mg PO .COMPLEX PRN tab 04/10/19 apixaban 5 mg tablet 5 mg PO BID #180 tab 08/26/19 simvastatin 10 mg tablet 10 mg PO QHS #90 tab 08/26/19 amiodarone 200 mg tablet 100 mg PO QDAY #45 tab 11/25/19 metoprolol tartrate 25 mg tablet 12.5 mg PO BID #90 tab 05/10/20 Surgical History: Surgical History (Last Reviewed 07/08/20 @ 10:[address] Harrison Butler DO) Presence of coronary angioplasty implant and graft Onset Date: ~09/24/13 Z95.5 PCI/MELLISA- to 1st diagonal & 3rd obtuse marginal 09/24/13 History of appendectomy Z90.49 History of appendectomy Z90.49 History of back surgery Z98.890 History of cholecystectomy Z90.49 History of cholecystectomy Z90.49 History of tonsillectomy Z90.89 History of tonsillectomy Z90.89 Smoking Status: Never smoker - *Family History Paternal Family History: Family History (Last Reviewed 07/08/20 @ 10:[address] Harrison Butler DO) Mother Cancer Father Myocardial infarction Brother Myocardial infarction Brother Myocardial infarction Brother Myocardial infarction Brother Cancer Sister Myocardial infarction Sister Cancer History Items: No pertinent history Review of Systems Constitutional: Denies: Anorexia, Fever, Night Sweats Eyes: Denies: Blurred vision, Double vision HEENT: Denies: Head Aches, Sinus Congestion, Sinus Drainage Cardiovascular: Denies: Chest Pain, Palpitations Respiratory: Denies: Cough, Shortness of breath at rest, Sputum production Gastrointestinal: Denies: Abdominal Pain, Nausea, Vomiting Genitourinary: Denies: Dysuria Musculoskeletal: Denies: Joint Pain, Joint Tenderness Neurological: Reports: Focal weakness. Denies: Numbness, Tingling Psychiatric: Denies: Anxiety, Depression Hematologic/ Lymphatic: Denies: Easy Bruising, Easy Bleeding, Hx of blood clot Comment: All review of systems were negative except as mentioned above in the history of present illness and the other review of systems. VTE Information - Inpt Only VTE Present on Admission: No VTE Mechan Device Prophylaxis: None VTE Pharm Prophylaxis ordered?: No - Physical Exam Vitals/I&O's: Vital Signs Temp Pulse Resp BP Pulse Ox 36.2 C L 55 L 14 159/70 H 97 07/08/20 10:31 07/08/20 10:31 07/08/20 10:31 07/08/20 10:31 07/08/20 10:31 Oxygen Delivery Method Room Air Weight: 100.2 kg Body Mass Index (BMI) 34.7 Finger Stick Blood Glucose 130 General: Alert, Cooperative, No apparent distress HEENT: Atraumatic, PERRLA, EOMI, Normocephalic Oral: Moist Mucosa, No Gingival or Mucosal Lesions/ Ulcerations Neck: No Nodes, Thyroid Normal Size and Texture Lungs: Clear to auscultation, Normal air movement, No rhonchi, No wheeze Cardiovascular: Regular rate, Regular Rhythm, Normal S1, Normal S2, No murmurs Abdomen: Bowel Sounds Present, Soft, Non Tender, Non-Distended Extremities: No clubbing, No edema, No Calf Tenderness Skin: No rashes, No breakdown Musculoskeletal: No Tenderness to Palpation of Joints or Extremities, No Muscle Wasting Neurological: Facial Droop - right facial droop. slight flattening of right forehead compared to left. Psych/Mental Status: Normal Affect, Appropriate, Agitated, Anxious Laboratory Results 07/08/20 08:21: POC Glucose 130 H 07/08/20 08:42: WBC 5.4, RBC 3.77 L, Hgb 12.2 L, Hct 37.7 L, MCV 100.0 H, MCH 32.4 H, MCHC 32.4, RDW Std Deviation 46.8 H, RDW Coeff of Harinder 12.9, Plt Count 200, MPV 9.5, Immature Gran % (Auto) 0.200, Neut % (Auto) 56.0, Lymph % (Auto) 30.9, [place] % (Auto) 10.1 H, Eos % (Auto) 2.4, Baso % (Auto) 0.4, Absolute Neuts (auto) 3.0, Absolute Lymphs (auto) 1.66, Nucleated RBC % 0 07/08/20 08:42: PT 17.3 H, INR 1.5, APTT 32.3 07/08/20 08:42: Sodium 140, Potassium 4.0, Chloride 110 H, Carbon Dioxide 26.0, Anion Gap 4 L, BUN 19 H, Creatinine 1.37 H, Estim Creat Clear Calc 42.89, Est GFR (MDRD) Af Amer 65, Est GFR (MDRD) Non-Af 54 L, BUN/Creatinine Ratio 13.9, Glucose 129 H, Calcium 8.0 L, Troponin I < 0.015 Current Medications Labetalol HCl (Trandate) 20 mg IV X1 PRN PRN Reason: Blood Pressure Sodium Chloride () 10 - 40 ml IV UD PRN PRN Reason: SALINE FLUSH Assessment/Plan All Active Problems (Last Reviewed 09/22/19 @ 09:32 by Mayelin Gregory) Abnormal pulmonary function test (Acute) 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 CAD: * stable 3. VTE prophylaxis: not indicated as he is observation status. OBSV E&M: 23344 Initial observation care L3
--- NOTE | 2020-07-08 10:56 | MRI_ITS ---
STUDY: MRI BRAIN WITHOUT CONTRAST REASON FOR EXAM: Male, 75 years old. right facial droop/numbness TECHNIQUE: Standardized multiplanar fat and water weighted pulse sequences were obtained. COMPARISON: CT 07/08/2020 FINDINGS: There is mild cerebral atrophy with widening of the extra-axial spaces and ventricular dilatation. There are a limited number of small white matter hyperintensities, distributed throughout the deep white matter tracts of the cerebral hemispheres, consistent with mild chronic white matter ischemic changes. There is no evidence for recent intracranial ischemia or other cause of cytotoxic edema on diffusion weighted imaging (DWI). Normal T2* images of the brain without demonstrated susceptibility artifact. There is no demonstrated hemosiderin stain. Normal bilateral basal ganglia. Normal thalami. There is no extra-axial fluid accumulation. Normal flow voids within the major intracranial circulation suggesting patency by spin echo criteria. Normal sella turcica, pituitary gland, infundibular stalk, optic chiasm and hypothalamus. Normal tectal plate and pineal gland. Normal midbrain, nory and medulla. Normal cerebellum. Normal basal cisterns. Normal bilateral temporal bones. Normal bilateral internal auditory canals. No demonstrated orbital abnormality, within the constraints of a routine brain study. Normal visualized paranasal sinuses. Normal calvarium and skull base. Normal visualized soft tissue structures. Normal visualized upper cervical spine. MRI/Brain without Contrast IMPRESSION: Involutional changes of the brain, as described above. No acute infarct. Electronically Signed: Esau Mcbride MD at 13:43 EDT Tel , Service support ,
[2020-07-08] MEDS: LORazepam 2 MG/ML Syringe 0.5 MG IV (12:43)
[2020-07-08] MEDS: predniSONE 20 MG Tablet 60 MG PO (13:44)
[2020-07-08] MEDS: Acyclovir 200 MG Capsule 400 MG PO (14:06)
--- NOTE | 2020-07-08 14:38 | DCINST_ITS ---
You will use the following diet at home:: Cardiac Instructions: ED [place] Palsy Additional Instructions: Wear glasses or protective eyewear during the day. Use eyedrops to the right eye every 6 hours while awake and then hourly as needed. Use the eye ointment to the right eye at night and cover with patch nightly. Allergies/Adverse Reactions: Allergies No Known Allergies Allergy (Verified 07/08/20 08:34) Medications to take at Discharge Omeprazole [Prilosec] 40 mg PO DAILY 10/01/17 Terazosin HCl 10 mg PO QHS 10/01/17 furosemide 40 mg tablet 40 mg PO .COMPLEX PRN tab 04/10/19 apixaban 5 mg tablet 5 mg PO BID #180 tab 08/26/19 simvastatin 10 mg tablet 10 mg PO QHS #90 tab 08/26/19 amiodarone 200 mg tablet 100 mg PO QDAY #45 tab 11/25/19 metoprolol tartrate 25 mg tablet 12.5 mg PO BID #90 tab 05/10/20 Hypromellose [Systane Gel] 10 gm OP QHS #10 gel..gram. 07/08/20 Peg 400/Hypromellose/Glycerin [Visine Tears Drops] 15 ml OP Q6H #1 drops 07/08/20 Prednisone 10 mg PO DAILY #49 tab 07/08/20 Valacyclovir HCl [Valacyclovir] 1,000 mg PO TID #21 tab 07/08/20 The following prescriptions were given: Prednisone 10 mg PO DAILY #49 tab Transmission Status: Pending to [address] Hypromellose [Systane Gel] 10 gm OP QHS #10 gel..gram. Transmission Status: Pending to [address] Valacyclovir HCl [Valacyclovir] 1,000 mg PO TID #21 tab Transmission Status: Pending to [address] Peg 400/Hypromellose/Glycerin [Visine Tears Drops] 15 ml OP Q6H #1 drops Transmission Status: Pending to [address] Primary Care Physician: Von Roach DO [Primary Care Provider] - Within 1 Week Test Results: Test results from this visit will be discussed in further detail at your follow- up appointment, if applicable. Proposed Discharge Date: 07/08/20
--- NOTE | 2020-07-08 14:40 | DS.PCM_ITS ---
Discharge Date and Diagnosis Date of Admission: 07/08/20 Date of Discharge: 07/08/20 - Primary Discharge Diagnosis Acute Problems: [place] Palsy - Secondary Discharge Diagnosis Chronic Problems: Chronic Problems (Last Reviewed 07/08/20 @ 10:[address] Harrison Butler, DO) GERD (gastroesophageal reflux disease) (Chronic) CKD (chronic kidney disease) (Chronic) Presence of stent in coronary artery (Chronic ~09/24/13) PCI/MELLISA- to 1st diagonal & 3rd obtuse marginal 09/24/13 Pure hypercholesterolemia (Chronic) Atherosclerosis of [place] coronary artery of [place] heart without angina pectoris (Chronic) PCI-stent to 1st diagonal & 3rd obtuse marginal 10/01; Other penitentiary (current) drug therapy (Chronic) Daytime somnolence (Chronic) Hyperlipidemia with target low density lipoprotein (LDL) cholesterol less than 70 mg/dL (Chronic) Essential hypertension (Chronic) Paroxysmal atrial fibrillation (Chronic) Hospital Course and Treatment Imaging Results: 07/08/20 08:24 Brain/Head without Contrast [CT] Stat 07/08/20 08:27 CTA Head AND Neck W/ Contrast [CT] Stat 07/08/20 09:00 Chest 1 View [RAD] Stat 07/08/20 10:56 Brain without Contrast [MRI] Stat Clinical Impression(s) from Imaging Studies Brain CT 07/08/20 08:24 IMPRESSION: Chronic involutional changes of the brain. Electronically Signed: Esau Mcbride MD at 8:42 EDT Tel , Service support , Head/Neck CTA 07/08/20 08:27 IMPRESSION: Normal CTA Head and neck with contrast. Electronically Signed: Esau Mcbride MD at 8:51 EDT Tel , Service support , Chest X-Ray 07/08/20 09:00 IMPRESSION: Normal x-ray examination of the chest. Electronically Signed: Esau Mcbride MD at 9:30 EDT Tel , Service support , Brain MRI 07/08/20 10:56 IMPRESSION: Involutional changes of the brain, as described above. No acute infarct. Electronically Signed: Esau Mcbride MD at 13:43 EDT Tel , Service support , Operations: None Procedures: None Summary of Care Provided: The patient is a 75 year old M who awoke this morning with right facial numbness and droop. Patient had no other symptoms. Patient was able to close his eyes and raise his forehead bilaterally though it was less pronounced on the right. Patient had a right facial droop. Neurologic exam was otherwise unremarkable. Patient underwent a stroke work-up, including CTA of the head neck and MRI that were negative. 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 Patient was started on acyclovir here but will continue with the valacyclovir upon discharge. Patient will be on a high dose of prednisone of 60 mg for a week and then to taper that off over the next week. Patient instructed to use eyedrops during the day and to use an ointment at night and to wear a patch over his right eye at night. Case discussed with the patient's daughter at bedside and results of the images were relayed to both of them. [] - Physical Exam Vitals/I&O's: Vital Signs Temp Pulse Resp BP Pulse Ox 36.2 C L 53 L 16 142/75 H 96 07/08/20 14:12 07/08/20 14:12 07/08/20 14:12 07/08/20 14:12 07/08/20 14:12 Oxygen Delivery Method Room Air Weight: 100.2 kg Body Mass Index (BMI) 34.7 Finger Stick Blood Glucose 130 Laboratory Results 07/08/20 08:21: POC Glucose 130 H 07/08/20 08:42: WBC 5.4, RBC 3.77 L, Hgb 12.2 L, Hct 37.7 L, MCV 100.0 H, MCH 32.4 H, MCHC 32.4, RDW Std Deviation 46.8 H, RDW Coeff of Harinder 12.9, Plt Count 200, MPV 9.5, Immature Gran % (Auto) 0.200, Neut % (Auto) 56.0, Lymph % (Auto) 30.9, [place] % (Auto) 10.1 H, Eos % (Auto) 2.4, Baso % (Auto) 0.4, Absolute Neuts (auto) 3.0, Absolute Lymphs (auto) 1.66, Nucleated RBC % 0 07/08/20 08:42: PT 17.3 H, INR 1.5, APTT 32.3 07/08/20 08:42: Sodium 140, Potassium 4.0, Chloride 110 H, Carbon Dioxide 26.0, Anion Gap 4 L, BUN 19 H, Creatinine 1.37 H, Estim Creat Clear Calc 42.89, Est GFR (MDRD) Af Amer 65, Est GFR (MDRD) Non-Af 54 L, BUN/Creatinine Ratio 13.9, Glucose 129 H, Calcium 8.0 L, Troponin I < 0.015 07/08/20 11:10: Troponin I < 0.015 Current Medications Acetaminophen (Tylenol) 650 mg PO Q6H PRN PRN PRN Reason: Pain Score 1-10/Temp > 100.7 F Acyclovir (Zovirax) 400 mg PO 5X/DAY [facility] Last Admin: 07/08/20 14:06 Dose: 400 mg Documented by: [facility]iod[facility]) [facility] Apixaban (Eliquis) 5 mg PO BID [facility] Atorvastatin Calcium (Lipitor) 5 mg PO QHS [place] Doxazosin Mesylate (Cardura) 8 mg PO QHS [place] Furosemide (Lasix) 40 mg PO .COMPLEX PRN PRN Reason: SOB &/OR WHEEZING Hydralazine HCl (Apresoline Iv) 5 mg IV Q30M PRN PRN Reason: to maintain BP goals Labetalol HCl (Trandate) 10 - 20 mg IV Q10M PRN PRN PRN Reason: to Maintain BP Goals Metoprolol Tartrate (Lopressor (Beta Jose Raul)) 12.5 mg PO BID [facility] Pantoprazole Sodium (Protonix) 40 mg PO DAILY [facility] Prednisone () 60 mg PO DAILY@0800 [facility] Discharge Diet: Low fat/ Low Cholesterol Discharge Activity: Return to Normal Activity Home Medications: Medications to take at Discharge Omeprazole [Prilosec] 40 mg PO DAILY 10/01/17 Terazosin HCl 10 mg PO QHS 10/01/17 furosemide 40 mg tablet 40 mg PO .COMPLEX PRN tab 04/10/19 apixaban 5 mg tablet 5 mg PO BID #180 tab 08/26/19 simvastatin 10 mg tablet 10 mg PO QHS #90 tab 08/26/19 amiodarone 200 mg tablet 100 mg PO QDAY #45 tab 11/25/19 metoprolol tartrate 25 mg tablet 12.5 mg PO BID #90 tab 05/10/20 Hypromellose [Systane Gel] 10 gm OP QHS #10 gel..gram. 07/08/20 Peg 400/Hypromellose/Glycerin [Visine Tears Drops] 15 ml OP Q6H #1 drops 07/08/20 Prednisone 10 mg PO DAILY #49 tab 07/08/20 Valacyclovir HCl [Valacyclovir] 1,000 mg PO TID #21 tab 07/08/20 Following Prescriptions Were Given to Patient: Prednisone 10 mg PO DAILY #49 tab Transmission Status: Pending to [facility] Hypromellose [Systane Gel] 10 gm OP QHS #10 gel..gram. Transmission Status: [facility] Valacyclovir HCl [Valacyclovir] 1,000 mg PO TID #21 tab Transmission Status: Pending to [facility] Peg 400/Hypromellose/Glycerin [Visine Tears Drops] 15 ml OP Q6H #1 drops Transmission Status: [facility] Primary Care Physician: Von Roach DO [Primary Care Provider] - Within 1 Week Patient Instructions: ED [place] Palsy Disposition: Home Minutes spent on discharge:: 40 Patient Condition:: Good Medical Necessity - Tobacco Use Smoking Status: Never smoker Meaningful Use Info Meaningful Use Diagnoses (Choose all that apply): None applicable OBSV E&M: 61447 Observ/hosp same date L3
--- NOTE | 2020-07-08 15:55 | CASEMGMT ---
SW did not do a PHQ 9 as per physician patient did not have a Stroke or TIA. Gretchen PIERRE MSW
== END 2020-07-08 14:40 | disposition home or self-care (01) ==
LOC: ED 08:33 → PCU 10:58
PROVIDERS: Emergency Provider Emergency Medicine; PCP Family Medicine
DX: G51.0 Bell's palsy (principal); I25.10 Atherosclerotic heart disease of native coronary artery without angina pectoris; E78.5 Hyperlipidemia, unspecified; K21.9 Gastro-esophageal reflux disease without esophagitis; N18.9 Chronic kidney disease, unspecified; I48.0 Paroxysmal atrial fibrillation; I12.9 Hypertensive chronic kidney disease with stage 1 through stage 4 chronic kidney disease, or unspecified chronic kidney disease; Z95.5 Presence of coronary angioplasty implant and graft; Z79.899 Other long term (current) drug therapy; Z79.01 Long term (current) use of anticoagulants; N40.0 Benign prostatic hyperplasia without lower urinary tract symptoms
CPT/HCPCS: 36415; 70450; 70496; 70498; 70551; 71045; 80048; 82962; 84484; 85025; 85610; 85730; 93005; 96374; 99218; 99285; Q9967; A4216; G0378

== ENCOUNTER 2020-07-21 07:51 | Outpatient (RCR) | payer MEDICARE, SELFPAY ==
[2020-07-08 10:37] VITALS: BMI 34.7
--- NOTE | 2020-07-21 09:21 | HP.PTEVAL ---
Patient's Visit Information SAL CHAPMAN is a 75 year old M referred to Physical Therapy by Dr. Von Raoch DO with a diagnosis of bells palsy. Date of Evaluation: 07/21/20 Physical Therapist: Magnus Marks, PT, ATC - Visit Plan Frequency: 1x/Week Duration: 2 Weeks Plan: Follow up with pt in 2 weeks to assess progress, and maybe consider IFC - Subjective Pt reports he has had R facial weakness for over 2 weeks. Pt reports he just woke up one day and felst as though he had a stroke. Pt reports the etiology of his condition is believed to be viral. Pt reports his symptoms are the exact same as they were 2 weeks ago. Pt notes he is having trouble with drinking fluids and eating at this time. Pt reports the only thing that has changes over this time span is that his R face is really sore. Pt is unable to smile at this time or close his R eye fully. Facial pain is rated at 5/10 this date. - Pain R face Pain Intensity (Out of 10): 5 Pain Intensity Range: 5 - Objective Neuro: B facial sensation is WNL to light touch. AROM: Pt is unable to move the R side of his face. Pt is unable to purse lips, smile, wink, wrinkle nose, and wrinkle forehead - Goals Goal 1:: I with HEP Goal Time Frame: 2 Weeks - Rehabilitation Potential Physical Therapy Diagnosis: Pt has R sided facial weakness and difficulty with eating secondary to [place] Palsy Rehabilitation Potential: Good - Anticipated Interventions Patient/Client Instruction: Educate patient on: Condition, Plan of Care For the Purpose of:: To improve self management Therapeutic Exercise to Include: Strength training, Active ROM For the Purpose of:: To increase ROM, To improve muscle performance and motor function IF ES: Yes For the Purpose of:: To increase ROM, To improve muscle performance and motor function Thank you for the opportunity to evaluate your patient. For Medicare and Medicare HMO plans, please review the plan of care and approve it. It will need to be FAXED BACK to us at [phone] for Medicare purposes. For Medicare only, by signing this I certify the plan of care. Please let me know if there are questions or concerns regarding this plan of care. Physician Signature: Date:
--- NOTE | 2020-09-01 07:33 | HP.PT.NRP ---
SAL CHAPMAN was seen in my office for initial evaluation on 07/21/20. The following Plan of Care was established for this patient: Initial Frequency: 1x/Week Initial Duration: 2 Weeks Patient/Client Instruction: Educate patient on: Condition, Plan of Care For the Purpose of:: To improve self management Therapeutic Exercise to Include: Strength training, Active ROM For the Purpose of:: To increase ROM, To improve muscle performance and motor function IF ES: Yes For the Purpose of:: To increase ROM, To improve muscle performance and motor function This patient was last seen in our office . Pertinent comments regarding their Physical therapy will appear below: Pt was treated for 1 PT visit for [place] palsey through the date of 07/21/20. Pt has not returned through todays date and is discontinued at this time. At this point I will be discontinuing this patient from physical therapy. I would be happy to see this patient again in the future if found appropriate by the physician. Thank you! Magnus Marks, PT, ATC
== END 2020-07-21 19:00 | disposition home or self-care (01) ==
LOC: PT 07:51
PROVIDERS: PCP Family Medicine; Referring Provider Family Medicine; Visit Provider Family Medicine
DX: G51.0 Bell's palsy (principal)
CPT/HCPCS: 97110; 97161

== ENCOUNTER → 2020-10-19 08:55 | Outpatient (CLI) | payer MEDICARE, SELFPAY ==
[2020-07-08 10:37] VITALS: BMI 34.7
[2020-10-19 12:24] LABS: Absolute Lymphocyte Count 1.56 X10^3/uL (0.83-4.51); Absolute Neutrophil Count 3.3 X10^3/uL (2.0-7.7); Basophil# 0.05 X10^3/uL; Basophil% 0.9 % (0-1); Eosinophil# 0.13 X10^3/uL; Eosinophils% 2.3 % (0-5); Hematocrit 38.6 % (40-54); Hemoglobin 12.3 g/dL (13.0-16.5); Lymphocyte # 1.56 X10^3/ul (4.0); Mean Corp Hgb Conc 31.9 g/dL (32-36); Mean Corpuscular Hgb 32.1 pg (27.0-32.0); Mean Corpuscular Volume 100.8 fL (80-94); Monocyte# 0.54 X10^3/uL; Monocyte% 9.7 % (0-10); NRBC Flagged by Analyzer 0 % (0-5); Neutrophil # 3.28 X10^3/uL (2.7-7.7); Neutrophil % 58.9 % (47-70); Platelet Count 231 K/mm3 (150-450); RBC Distribution Width CV 13.3 % (11.6-14.6); RBC Distribution Width SD 49.5 fl (35.1-43.9); Red Blood Count 3.83 M/mm3 (4.6-6.2); White Blood Count 5.6 K/mm3 (4.4-11.0)
[2020-10-19 12:41] LABS: ALB/GLOB Ratio 0.8 RATIO (0.9-2.4); AST(SGOT) 10 U/L (15-37); Alanine Aminotransfer ALT/SGPT 19 U/L (16-61); Alkaline Phosphatase 41 U/L (45-117); Anion Gap 3 (5-15); BUN 16 mg/dL (7-18); BUN/Creat Ratio 12.1 RATIO (10-20); Calcium,Total 8.2 mg/dL (8.5-10.1); Chloride 113 mmol/L (98-107); Cholesterol 143 mg/dL (200); Creatinine, Serum 1.32 mg/dL (0.70-1.30); EST Glomerular Filtration Rate 56 mL/min (>60); Est Glom Filt Rate - Afr Amer 68 mL/min (>60); Globulin 3.8 g/dL (2.2-4.2); Glucose 123 mg/dL (74-106); High Density Lipoprotein 44 mg/dL; Potassium 4.1 mmol/L (3.5-5.1); Protein, Total 6.8 g/dL (6.4-8.2); Sodium Level 143 mmol/L (136-145); Thyroid Stim Hormone (TSH) 0.64 uIU/mL (0.358-3.74); Triglycerides 72 mg/dL; Very Low Density Lipoprotein 14 mg/dL (5-40)
== END ==
PROVIDERS: PCP Family Medicine; Visit Provider Family Medicine
DX: I25.10 Atherosclerotic heart disease of native coronary artery without angina pectoris (principal); N18.30 Chronic kidney disease, stage 3 unspecified; E78.5 Hyperlipidemia, unspecified; Z51.81 Encounter for therapeutic drug level monitoring
CPT/HCPCS: 36415; 80053; 80061; 84439; 84443; 85025

== ENCOUNTER 2021-01-27 16:36 | Outpatient (RCR) | payer MEDICARE, SELFPAY ==
[2020-07-08 10:37] VITALS: BMI 34.7
[2021-01-27] MEDS: COVID-19 VACC, MRNA(PFIZER)/PF 30 MCG/0.3 ML SYRINGE IM (18:20)
[2021-02-17] MEDS: COVID-19 VACC, MRNA(PFIZER)/PF 30 MCG/0.3 ML SYRINGE IM (18:15)
== END 2021-04-26 23:59 ==
LOC: IMMUN 16:36
PROVIDERS: PCP Family Medicine; Visit Provider Family Medicine
DX: Z23 Encounter for immunization (principal)
CPT/HCPCS: 0001A; 0002A; 91300

== ENCOUNTER 2021-02-21 10:51 | Emergency (ER) | payer MEDICARE, SELFPAY ==
[2020-07-08 10:37] VITALS: BMI 34.7
[2021-02-21 10:53] VITALS: BP 130/69; PULSE 54; RESP 16; TEMP 35.9; O2SAT 94; BMI 33.6
--- NOTE | 2021-02-21 11:16 | CT_ITS ---
STUDY: CT LUMBAR SPINE WITHOUT CONTRAST REASON FOR EXAM: Male, 76 years old. Pain RADIATION DOSAGE (If Supplied By Facility): CTDIvol = ( 36.92 ) mGy, DLP = ( 1414.99 ) mGycm TECHNIQUE: The patient was scanned in a multi detector CT scanner. High resolution transaxial imaging was performed. Images were obtained from T12 to coccyx. Sagittal and coronal images were reconstructed. Individualized dose optimization techniques were used for this CT. COMPARISON: None FINDINGS: Normal lumbar lordosis. There is no substantial scoliosis. Normal vertebrae of the lumbar spine. T12-L1:Normal endplates. Mild disc space height narrowing. No ventral extradural defect. Normal facet joints. Normal central canal and bilateral lateral recesses. Normal bilateral intervertebral neural foramina. L1-2: Normal endplates. Normal disc height and morphology. Mild central canal stenosis with an AP canal diameter of 9.4 mm. This is secondary to developmentally short pedicles. There is only minimal dorsal epidural lipomatosis. Mild asymmetric degenerative facet hypertrophy, left greater than right. Normal bilateral intervertebral neural foramina. L2-3: Normal endplates. Mild disc space height narrowing. Small posterior annular bulging disc. Moderate central canal stenosis with an AP canal diameter is 7 mm. This is secondary to developmentally short pedicles. Mild asymmetric degenerative facet hypertrophy. Normal bilateral intervertebral neural foramina. L3-4: Normal endplates. Mild disc space height narrowing. Mild central canal stenosis with an AP canal diameter of 9 mm. This is secondary to developmentally short pedicles. Normal bilateral lateral recesses. Mild asymmetric degenerative facet arthropathy. Normal bilateral intervertebral neural foramina. L4-5: Normal endplates. Minimal disc space height narrowing. Small posterior annular bulging disc. Mild central canal stenosis with an AP canal diameter of 8 mm. Normal bilateral lateral recesses. Mild bilateral degenerative facet arthropathy. Mild stenosis of the bilateral intervertebral neural foramina. L5-S1: Anterior marginal spurs with endplate sclerosis. Moderate disc space height narrowing. Normal central canal and bilateral lateral recesses. Mild bilateral degenerative facet arthropathy. Mild stenosis of the bilateral intervertebral neural foramina. Normal visualized paraspinous soft tissue structures. CT/Spine Lumbar without Contrast IMPRESSION: 1. Moderate central canal stenosis at L2-L3 disc space level with small posterior annular bulging disc. The AP canal diameter is 7 mm. This is secondary to developmentally short pedicles and mild asymmetric degenerative facet hypertrophy. 2. Mild central canal stenosis at L3-L4 disc space level with an AP canal diameter of 9 mm and mild asymmetric degenerative facet arthropathy. 3. Mild central canal stenosis at L1-L2 disc level with an AP canal diameter of 9.4 mm and mild asymmetric degenerative facet hypertrophy. 4. Mild central canal stenosis at L4-L5 disc level with an AP canal diameter of 8 mm. This is secondary to small posterior annular bulging disc and developmentally short pedicles. 5. Mild stenosis of the bilateral L5-S1 intervertebral neural foramina, moderate disc space height narrowing and mild bilateral degenerative facet arthropathy. 6. No CT evidence of lumbar extruded disc fragment. Electronically Signed: Tha Austin MD at 12:09 EDT , Service support ,
[2021-02-21] MEDS: Ondansetron 4 MG/2 ML Vial IV (11:29)
[2021-02-21] MEDS: Morphine 4 MG/ML Syringe IV (11:29)
[2021-02-21 11:49] LABS: Absolute Lymphocyte Count 1.32 X10^3/uL (0.83-4.51); Absolute Neutrophil Count 3.8 X10^3/uL (2.0-7.7); Basophil# 0.03 X10^3/uL; Basophil% 0.5 % (0-1); Eosinophils% 1.7 % (0-5); Hematocrit 40.4 % (40-54); Hemoglobin 13.2 g/dL (13.0-16.5); Lymphocyte # 1.32 X10^3/ul (4.0); Lymphocyte % 22.8 % (19-41); Mean Corp Hgb Conc 32.7 g/dL (32-36); Mean Corpuscular Hgb 32.2 pg (27.0-32.0); Mean Corpuscular Volume 98.5 fL (80-94); Mean Platelet Vol. 10.2 fl (6.2-12.0); Monocyte# 0.54 X10^3/uL; Monocyte% 9.3 % (0-10); NRBC Flagged by Analyzer 0 % (0-5); Neutrophil # 3.79 X10^3/uL (2.7-7.7); Neutrophil % 65.5 % (47-70); Platelet Count 201 K/mm3 (150-450); RBC Distribution Width CV 13.7 % (11.6-14.6); RBC Distribution Width SD 49.8 fl (35.1-43.9); White Blood Count 5.8 K/mm3 (4.4-11.0)
[2021-02-21 12:02] LABS: ALB/GLOB Ratio 0.8 RATIO (0.9-2.4); AST(SGOT) 16 U/L (15-37); Alanine Aminotransfer ALT/SGPT 24 U/L (16-61); Alkaline Phosphatase 35 U/L (45-117); Anion Gap 3 (5-15); BUN 19 mg/dL (7-18); BUN/Creat Ratio 15.2 RATIO (10-20); Calcium,Total 8.3 mg/dL (8.5-10.1); Chloride 110 mmol/L (98-107); Creatinine, Serum 1.25 mg/dL (0.70-1.30); EST Glomerular Filtration Rate 60 mL/min (>60); Est Glom Filt Rate - Afr Amer 72 mL/min (>60); Estimated Creatinine Clearance 46.27 ml/min; Glucose 115 mg/dL (74-106); Potassium 4.3 mmol/L (3.5-5.1); Sodium Level 139 mmol/L (136-145)
[2021-02-21 12:27] LABS: Bacteria 0 SEEN /hpf (None Seen); Red Blood Cells-Urine 0 SEEN /hpf (0-5); Squamous Epithelial Cells - UA 0 SEEN /hpf (0-5)
[2021-02-21 12:34] LABS: Color, Urine Yellow (Yellow); Glucose, Dipstick Normal (Normal); Ketone-Dipstick Negative (Negative); Leukocyte Esterase-Dipstick Negative /ul (Negative); Nitrite-Dipstick Negative (Negative); Occult Blood-Urine Negative /ul (Negative); Protein-Dipstick Negative (Negative); Specific Gravity, Urine 1.015 (1.002-1.030); Urine Bilirubin Dipstick Negative (Negative); Urine Clarity Clear (Clear); Urine Urobilinogen 1 mg/dl (Normal)
[2021-02-21 12:42] LABS: Mucous, Urine 1+ /hpf (<or=2+); White Blood Cells 0-5 SEEN /hpf (0-5)
[2021-02-21 12:51] VITALS: BP 102/58; PULSE 43; RESP 10; O2SAT 90
--- NOTE | 2021-02-21 12:51 | ED.VISSUMM ---
- ER Visit Summary Date of Service: 02/21/21 Chief Complaint: Back pain History of Present Illness: The patient is a [address] Roach. He reports she has low back pain been approximately 1 week ago. Said continuous sharp pains 10-10 in severity. Is worsened by movement relieved by remaining still. Is not taken anything for pain. He denies any radiation to his legs. No numbness or weakness. Denies any problems with his bowels or his bladder. No groin numbness. Patient denies any preceding injury. No fall, MVA, or change in activity. He does complain of subjective fever and dysuria. States that he was told he was had a kidney infection approximately 2 months ago was placed on antibiotics. Physical Examination: Vitals: Stable. Afebrile. General: A&O x 3. NAD. Cardiovascular exam: Regular rate and rhythm, no murmur, rub or gallop. Respiratory exam: Clear to auscultation bilaterally. No wheezes or stridor. Abdominal exam: Soft, nontender, nondistended, normal bowel sounds. No peritoneal signs. Back: Diffuse moderate tenderness to palpation over the lumbar spine and the paraspinous musculature in the lumbar region. No point tenderness. Negative straight leg bilaterally. 5/5 DF, PF, EHL bilaterally. Normal sensation to light touch throughout. Extremity: No clubbing, cyanosis, or edema. Test Results: CBC is normal. Chem-7 shows a chloride of 110, BUN 19, glucose 115, calcium 8.3. LFTs show an albumin of 3.0 and alk phos of 35. UA is normal. Clinical Impression(s) from Imaging Studies Lumbar Spine CT 02/21/21 11:16 IMPRESSION: 1. Moderate central canal stenosis at L2-L3 disc space level with small posterior annular bulging disc. The AP canal diameter is 7 mm. This is secondary to developmentally short pedicles and mild asymmetric degenerative facet hypertrophy. 2. Mild central canal stenosis at L3-L4 disc space level with an AP canal diameter of 9 mm and mild asymmetric degenerative facet arthropathy. 3. Mild central canal stenosis at L1-L2 disc level with an AP canal diameter of 9.4 mm and mild asymmetric degenerative facet hypertrophy. 4. Mild central canal stenosis at L4-L5 disc level with an AP canal diameter of 8 mm. This is secondary to small posterior annular bulging disc and developmentally short pedicles. 5. Mild stenosis of the bilateral L5-S1 intervertebral neural foramina, moderate disc space height narrowing and mild bilateral degenerative facet arthropathy. 6. No CT evidence of lumbar extruded disc fragment. Electronically Signed: Tha Austin MD at 12:09 EDT , Service support , Emergency Department Course and Treatment: Patient was given morphine and Zofran IV. He reports he had no relief from this. He was given a dose of [place] p.o. He feels well and would like to go home. Treatment Plan: Patient will be discharged with [place] and senna. Instructed to follow-up his primary care physician in 3 to 5 days if not improving. Return to the emergency department for any worsening symptoms. Disposition: To home in improved and stable condition. Impression: 1. Low back pain. 2. Coagulopathy on Eliquis. This note was generated with [employer] dictation software. It may contain incorrect words, spelling, and punctuation that were not noted in review of the chart prior to signing ED Disposition - Plan for ED Patient: Instructions: ED Back Pain (Acute or Chronic) Prescriptions: Hydrocodone Bitart/Apap 5-325 [[place] 5MG-325MG] 1 tablet PO Q4H PRN PRN 2 Days #10 tablet PRN Reason: Pain Sennosides [Senna] 8.6 mg PO QHS #10 tablet Referrals: Von Roach DO [Primary Care Provider] - 3-5 Days if not improving
[2021-02-21 13:16] VITALS: BP 102/58; PULSE 50
[2021-02-21] MEDS: HYDROcodone Bitartrate/Apap 5/325 Tablet PO (13:16)
== END 2021-02-21 13:26 | disposition home or self-care (01) ==
LOC: ED 12:14
PROVIDERS: Emergency Provider Emergency Medicine; PCP Family Medicine
DX: M54.5 Low back pain (principal); D68.9 Coagulation defect, unspecified; R50.9 Fever, unspecified; R30.0 Dysuria; I25.10 Atherosclerotic heart disease of native coronary artery without angina pectoris; Z79.01 Long term (current) use of anticoagulants
CPT/HCPCS: 36415; 72131; 80053; 81001; 83605; 85025; 87040; 87086; 96374; 96375; 99285; A4216; J2405

== ENCOUNTER → 2021-03-15 06:52 | Outpatient (CLI) | payer MEDICARE, SELFPAY ==
[2021-02-21 10:53] VITALS: BMI 33.6
--- NOTE | 2021-03-15 09:04 | MRI_ITS ---
STUDY: MRI CERVICAL SPINE WITH AND WITHOUT CONTRAST REASON FOR EXAM: Male, 76 years old. RT RADICULOPATHY,STENOSIS, HX OF CERVICAL SURGERY TECHNIQUE: Standardized fat and water weighted pulse sequences were obtained in the sagittal and axial following administration of IV Yes YES. COMPARISON: X-ray 08/10/2016 FINDINGS: Normal foramen magnum and brainstem-cervical cord junction. Normal craniovertebral junction. Normal anterior atlantoaxial articulation. Normal odontoid process. Normal cervical lordosis. Normal vertebral bodies and posterior osseous elements. C2-3: Small central disc protrusion produces mild spinal stenosis but no neural foraminal stenosis. C3-4: 2 mm retrolisthesis of C3 on C4 with a mild broad disc osteophyte complex produces moderate spinal stenosis with abutment the central spinal cord and mild bilateral neural foraminal stenosis. C4-5: Moderate broad disc osteophyte complex produces moderate spinal stenosis with abutment of the central spinal cord and mild bilateral neural foraminal stenosis. C5-6: Status post anterior cervical discectomy and fusion with bony bridging with anatomic alignment and no spinal stenosis or neural foraminal stenosis. C6-7: Moderate broad disc osteophyte complex asymmetric to the right produces moderate spinal stenosis with abutment of the right hemicord and mild bilateral neural foraminal stenosis. C7-T1: 2 mm of anterolisthesis of C7 on T1 with a mild broad disc protrusion produces mild spinal stenosis and mild bilateral neural foraminal stenosis. Normal cervical cord. No abnormal contrast enhancement. Normal visualized soft tissue structures. MRI/Spine Cervical W/WO Contrast IMPRESSION: Status post anterior cervical discectomy and fusion at C5/C6 with other degenerative disc disease as described above. Electronically Signed: Esau Mcbride MD at 12:28 EDT Tel , Service support ,
== END ==
PROVIDERS: PCP Family Medicine; Referring Provider Family Medicine; Visit Provider Family Medicine
DX: M48.02 Spinal stenosis, cervical region (principal); M54.12 Radiculopathy, cervical region
CPT/HCPCS: 72156; A9575

== ENCOUNTER 2021-05-25 13:11 | Emergency (ER) | payer MEDICARE, SELFPAY ==
[2021-05-25 13:12] VITALS: BP 133/67; PULSE 64; RESP 16; TEMP 36; O2SAT 98; BMI 33.4
[2021-05-25 13:14] VITALS: BP 133/67; PULSE 64; RESP 16; TEMP 36; O2SAT 98
--- NOTE | 2021-05-25 13:49 | CT_ITS ---
STUDY: CT ABDOMEN AND PELVIS WITH CONTRAST REASON FOR EXAM: Male, 76 years old. Abdominal pain -- IV PO Contrast. 2 week history of hematuria. Hematemesis. RADIATION DOSAGE (If Supplied By Facility): CTDIvol = ( 18.98 ) mGy, DLP = ( 1157.12 ) mGycm TECHNIQUE: Transaxial images were obtained from the dome of the diaphragm to the symphysis pubis without oral contrast. Oral and amp; IV Gastrografin and amp; 100mL Isovue-300 was administered. Sagittal and coronal images were reconstructed. Individualized dose optimization techniques were used for this CT. COMPARISON: None. FINDINGS: Mild scarring at the lung bases. Minimal degree of bronchiectasis. Coronary artery calcification. Central intrahepatic biliary ductal dilatation. There is a 1.3 cm hypodense nodule in the medial aspect of the right lobe of the liver. The gallbladder is not visualized. The common bile duct and pancreatic ducts are dilated down to the level of the ampulla of VATER. Questionable 1.4 cm mass in the region of the ampulla of VATER. Normal spleen. There is diffuse atrophy of the pancreas. Normal bilateral adrenal glands. Small bilateral renal cysts. There is a small hiatal hernia. Normal small intestine. There are multiple colonic diverticula consistent with diverticulosis. The appendix is visualized and appears normal. There is diffuse atherosclerotic calcification of the abdominal aorta, without a demonstrated aneurysm. Normal inferior vena cava. Normal retroperitoneum. Normal urinary bladder. There are prostatic calcifications. The prostate measures 4.2 cm x 4.5 cm. Normal abdominal wall. There are degenerative changes of the visualized lumbar spine. CT/Abdomen/Pelvis WITH Contrast IMPRESSION: Dilated intrahepatic biliary ducts as well as dilatation of the common bile duct and pancreatic duct down to the level of the gallbladder or a suspect a 1.4 cm mass. 1.3 cm hypodense nodule in the medial aspect of the right lobe of the liver. Electronically Signed: Jerzy Gomez MD at 15:49 EDT , Service support ,
[2021-05-25] MEDS: 0.9% Normal Saline 1,000 ML 1000 ML IV (13:58)
[2021-05-25] MEDS: Morphine 4 MG/ML Syringe IV ×2 (13:59→17:41)
[2021-05-25] MEDS: Ondansetron 4 MG/2 ML Vial IV ×2 (13:59→17:41)
[2021-05-25 14:00] LABS: Absolute Lymphocyte Count 0.74 X10^3/uL (0.83-4.51); Absolute Neutrophil Count 3.5 X10^3/uL (2.0-7.7); Basophil# 0.03 X10^3/uL; Basophil% 0.6 % (0-1); Eosinophil# 0.04 X10^3/uL; Eosinophils% 0.8 % (0-5); Hemoglobin 12.5 g/dL (13.0-16.5); Lymphocyte # 0.74 X10^3/ul (0.83-4.51); Lymphocyte % 14.8 % (19-41); Mean Corp Hgb Conc 32.9 g/dL (32-36); Mean Corpuscular Volume 97.2 fL (80-94); Mean Platelet Vol. 10.2 fl (6.2-12.0); NRBC Flagged by Analyzer 0 % (0-5); Neutrophil # 3.47 X10^3/uL (2.7-7.7); Neutrophil % 69.2 % (47-70); Platelet Count 272 K/mm3 (150-450); RBC Distribution Width CV 14.6 % (11.6-14.6); RBC Distribution Width SD 52.2 fl (35.1-43.9); Red Blood Count 3.91 M/mm3 (4.6-6.2)
[2021-05-25 14:17] LABS: ALB/GLOB Ratio 0.7 RATIO (0.9-2.4); AST(SGOT) 135 U/L (15-37); Alanine Aminotransfer ALT/SGPT 256 U/L (16-61); Albumin, Serum 2.9 g/dL (3.2-5.0); Alkaline Phosphatase 108 U/L (45-117); Anion Gap 8 (5-15); BUN 18 mg/dL (7-18); BUN/Creat Ratio 12.8 RATIO (10-20); Calcium,Total 8.3 mg/dL (8.5-10.1); Chloride 103 mmol/L (98-107); Creatinine, Serum 1.41 mg/dL (0.70-1.30); EST Glomerular Filtration Rate 52 mL/min (>60); Est Glom Filt Rate - Afr Amer 63 mL/min (>60); Estimated Creatinine Clearance 42.45 ml/min; Glucose 167 mg/dL (74-106); Lipase 1709 U/L (73-393); Potassium 3.7 mmol/L (3.5-5.1); Protein, Total 6.9 g/dL (6.4-8.2); Sodium Level 137 mmol/L (136-145)
[2021-05-25 15:22] VITALS: BP 136/70; PULSE 55; RESP 13; O2SAT 98
[2021-05-25 16:02] LABS: Mucous, Urine 0 SEEN /hpf (<or=2+); Red Blood Cells-Urine 0 SEEN /hpf (0-5); Squamous Epithelial Cells - UA 0 SEEN /hpf (0-5); White Blood Cells 0 SEEN /hpf (0-5)
[2021-05-25 16:06] LABS: Color, Urine Yellow (Yellow); Glucose, Dipstick Normal (Normal); Ketone-Dipstick Negative (Negative); Leukocyte Esterase-Dipstick Negative /ul (Negative); Nitrite-Dipstick Negative (Negative); Occult Blood-Urine Negative /ul (Negative); Protein-Dipstick Negative (Negative); Specific Gravity, Urine 1.005 (1.002-1.030); Urine Bilirubin Dipstick Negative (Negative); Urine Clarity Clear (Clear); Urine Urobilinogen 1 mg/dl (Normal); Urine pH 6.5 (5.0 - 8.0)
[2021-05-25 16:16] LABS: Bacteria 1+ /hpf (None Seen)
[2021-05-25 16:17] LABS: Amorphous Sediment 1+
[2021-05-25 16:27] LABS: AST(SGOT) 122 U/L (15-37); Alanine Aminotransfer ALT/SGPT 229 U/L (16-61); Albumin, Serum 2.6 g/dL (3.2-5.0); Alkaline Phosphatase 97 U/L (45-117); Globulin 3.8 g/dL (2.2-4.2); Protein, Total 6.4 g/dL (6.4-8.2)
[2021-05-25 16:32] VITALS: BP 134/70; PULSE 53; RESP 11; O2SAT 98
--- NOTE | 2021-05-25 16:43 | NURSING ---
CALLED [facility] [phone] FAXED FACESHEET FAXED LABS AND CT RESULTS
--- NOTE | 2021-05-25 16:57 | NURSING ---
PATIENT ACCEPTED AT [facility] BY DR LINDER, HEP OBILIARY DR WILL TRY TO MAKE A DIRECT ADMIT, IF NOT, WILL BRING TO [facility] ER TO ER
--- NOTE | 2021-05-25 17:08 | EX.ED.DYSGE1 ---
HPI History of Present Illness Chief Complaint: GI Bleed Narrative Narrative: Patient was seen by my partner, Dr. Hinton, he was turned over to me. I examined him, he has epigastric and right upper quadrant pain and he is jaundiced. His CT showed a possible mass contributing to common bile duct duct pancreatic and hepatic duct dilation and pancreatitis. Patient will be transferred [facility] Medical History (Updated 05/25/21 @ 17:[address] Luis Yin MD) Atherosclerosis of [place] coronary artery of [place] heart without angina pectoris Atypical chest pain BPH (benign prostatic hyperplasia) CKD (chronic kidney disease) Daytime somnolence Dizziness Essential hypertension GERD (gastroesophageal reflux disease) Hyperlipidemia with target low density lipoprotein (LDL) cholesterol less than 70 mg/dL Hypoalbuminemia Hypocalcemia Impaired fasting glucose Near syncope Other usp (current) drug therapy Paroxysmal atrial fibrillation Presence of stent in coronary artery (~09/24/13) Pure hypercholesterolemia Schatzki's ring Home Medications omeprazole 40 mg PO DAILY 10/01/17 [History Last Taken 10/01/17] terazosin 10 mg PO QHS 10/01/17 [History Last Taken 09/30/17] furosemide 40 mg tablet 40 mg PO .COMPLEX PRN tab 04/10/19 [History Last Taken Unknown] artificial tears(hypromellose) 10 gm OP QHS #10 gel..gram. 07/08/20 [Rx Last Taken Unknown] peg [id number] 15 ml OP Q6H #1 drops 07/08/20 [Rx Last Taken Unknown] prednisone 10 mg PO DAILY #49 tab 07/08/20 [Rx Last Taken Unknown] valacyclovir 1,000 mg PO TID #21 tab 07/08/20 [Rx Last Taken Unknown] amiodarone 200 mg tablet 100 mg PO QDAY #45 tab 07/16/20 [Rx Last Taken Unknown] simvastatin 10 mg tablet See Rx Instructions .ROUTE .COMPLEX #90 tab 11/10/20 [Rx Last Taken Unknown] metoprolol tartrate 25 mg tablet 12.5 mg PO BID #90 tab 02/07/21 [Rx Last Taken Unknown] Sennosides [Senna] 8.6 mg PO QHS #10 tablet 02/21/21 [Rx Last Taken Unknown] apixaban 5 mg tablet See Rx Instructions .ROUTE .COMPLEX #180 tab 05/11/21 [Rx Last Taken Unknown] Allergy/AdvReac Type Severity Reaction Status Date / Time No Known Allergies Allergy Verified 05/25/21 13:14 Family History Mother Cancer Father Myocardial infarction Brother Myocardial infarction Brother Myocardial infarction Brother Myocardial infarction Brother Cancer Sister Myocardial infarction Sister Cancer Surgical History History of appendectomy History of appendectomy History of back surgery History of cholecystectomy History of cholecystectomy History of tonsillectomy History of tonsillectomy Presence of coronary angioplasty implant and graft (~09/24/13) Social History (Updated 09/22/19 @ 10:[address] Luis Reese MD) Smoking Status: Never smoker how long ago did patient quit smokin years ago alcohol intake: current alcohol intake frequency: holidays/special occasions only Alcohol type: beer and wine substance use type: does not use caffeine: Yes Type: coffee Number of servings: 1 what type of physical activity do you participate in: none ROS ROS ED ROS Narrative Past medical history: Reviewed Medications: Reviewed Social history: Noncontributory Review of systems: All systems negative except as indicated General: No fever Eyes: No visual changes ENT: No upper airway congestion, normal voice Neck: No neck pain Cardiovascular: No chest pain Respiratory: No shortness of breath or cough Gastrointestinal: Abdominal pain with nausea and vomiting as in HPI Genitourinary: No dysuria Musculoskeletal: Denies myalgias no difficulty with ambulation Skin: Jaundice Neurological: No memory loss, confusion or any focal weakness Psych: No recent behavioral changes Hematologic: No easy bleeding or easy bruising EXAM Physical Exam Narrative Exam Narrative: Physical exam General: Well nourished, Well developed, No Acute Distress Head: Normocephalic, Atraumatic Eyes: Some scleral icterus ENT: Moist mucous membranes Neck: Supple, Nontender, No lymphadenopathy Cardiovascular: Regular rate, Regular rhythm Respiratory: No distress, CTA bilaterally Abdomen: Soft, slightly distended with epigastric and right upper quadrant pain. Barrera sign is negative Back: Nontender, Normal Inspection. Negative for: CVA tenderness Extremities: Nontender, No edema Skin: Jaundice Neurological: Alert, Normal Strength, Normal Sensation Psychological: Normal affect Const Vital Signs: 05/25/21 13:12 05/25/21 13:14 05/25/21 15:22 Temperature 96.8 F L 96.8 F L Temperature Source Temporal Temporal Pulse Rate 64 64 55 L Respiratory Rate 16 16 13 Blood Pressure 133/67 H 133/67 H 136/70 H Blood Pressure Mean 89 89 92 Pulse Ox 98 98 98 Oxygen Delivery Method Room Air Room Air Room Air 05/25/21 16:32 Temperature Temperature Source Pulse Rate 53 L Respiratory Rate 11 L Blood Pressure 134/70 H Blood Pressure Mean 91 Pulse Ox 98 Oxygen Delivery Method Room Air MDM MDM MDM Narrative Medical decision making narrative: I talked to [facility] who accepted the patient. Lab Data Labs: Laboratory Results - last 24 hr 05/25/21 05/25/21 05/25/21 13:30 13:30 15:45 WBC 5.0 RBC 3.91 L Hgb 12.5 L Hct 38.0 L MCV 97.2 H MCH 32.0 MCHC 32.9 RDW Std Deviation 52.2 H RDW Coeff of Harinder 14.6 Plt Count 272 MPV 10.2 Immature Gran % (Auto) 0.600 Neut % (Auto) 69.2 Lymph % (Auto) 14.8 L Pierce % (Auto) 14.0 H Eos % (Auto) 0.8 Baso % (Auto) 0.6 Absolute Neuts (auto) 3.5 Absolute Lymphs (auto) 0.74 L Nucleated RBC % 0 Sodium 137 Potassium 3.7 Chloride 103 Carbon Dioxide 26.0 Anion Gap 8 BUN 18 Creatinine 1.41 H Estim Creat Clear Calc 42.45 Est GFR (MDRD) Af Amer 63 Est GFR (MDRD) Non-Af 52 L BUN/Creatinine Ratio 12.8 Glucose 167 H Calcium 8.3 L Total Bilirubin 6.60 H Direct Bilirubin AST 135 H ALT 256 H Alkaline Phosphatase 108 Total Protein 6.9 Albumin 2.9 L Globulin 4.0 Albumin/Globulin Ratio 0.7 L Lipase 1709 H Urine Color Yellow Urine Clarity Clear Urine pH 6.5 Ur Specific [place] 1.005 Urine Protein Negative Urine Glucose (UA) Normal Urine Ketones Negative Urine Occult Blood Negative Urine Nitrite Negative Urine Bilirubin Negative Urine Urobilinogen 1 H Ur Leukocyte Esterase Negative Urine RBC 0 SEEN Urine WBC 0 SEEN Ur Squamous Epith Cells 0 SEEN Amorphous Sediment 1+ Urine Bacteria 1+ Urine Mucus 0 SEEN 05/25/21 16:00 WBC RBC Hgb Hct MCV MCH MCHC RDW Std Deviation RDW Coeff of Harinder Plt Count MPV Immature Gran % (Auto) Neut % (Auto) Lymph % (Auto) Pierce % (Auto) Eos % (Auto) Baso % (Auto) Absolute Neuts (auto) Absolute Lymphs (auto) Nucleated RBC % Sodium Potassium Chloride Carbon Dioxide Anion Gap BUN Creatinine Estim Creat Clear Calc Est GFR (MDRD) Af Amer Est GFR (MDRD) Non-Af BUN/Creatinine Ratio Glucose Calcium Total Bilirubin 6.50 H Direct Bilirubin 5.70 H AST 122 H ALT 229 H Alkaline Phosphatase 97 Total Protein 6.4 Albumin 2.6 L Globulin 3.8 Albumin/Globulin Ratio Lipase Urine Color Urine Clarity Urine pH Ur Specific [place] Urine Protein Urine Glucose (UA) Urine Ketones Urine Occult Blood Urine Nitrite Urine Bilirubin Urine Urobilinogen Ur Leukocyte Esterase Urine RBC Urine WBC Ur Squamous Epith Cells Amorphous Sediment Urine Bacteria Urine Mucus Radiography Diagnostic Testing: Radiology Impression Abdomen/Pelvis CT 05/25/21 13:49 IMPRESSION: Dilated intrahepatic biliary ducts as well as dilatation of the common bile duct and pancreatic duct down to the level of the gallbladder or a suspect a 1.4 cm mass. 1.3 cm hypodense nodule in the medial aspect of the right lobe of the liver. Electronically Signed: Jerzy Gomez MD at 15:49 EDT , Service support , Discharge Plan Triage Chief Complaint: GI Bleed ED Provider: Luis Yin Dx/Rx/DC Orders Clinical Impression: Acute pancreatitis, Biliary obstruction Prescriptions: No Action furosemide [Lasix] 40 mg tablet 40 mg PO .COMPLEX PRN (Reason: Sob &/Or Wheezing) RF: 0 omeprazole 20 MG capsule 40 mg PO DAILY RF: 0 terazosin 10 MG capsule 10 mg PO QHS RF: 0 prednisone 10 MG tablet 10 mg PO DAILY Qty: 49 RF: 0 valacyclovir 1,000 MG tablet 1,000 mg PO TID Qty: 21 RF: 0 artificial tears(hypromellose) 10 GM gel 10 gm OP QHS Qty: 10 RF: 0 peg [id number] 15 ML drops 15 ml OP Q6H Qty: 1 RF: 0 Sennosides [Senna] 8.6 MG tablet 8.6 mg PO QHS Qty: 10 RF: 0 amiodarone 200 mg tablet 100 mg PO QDAY Qty: 45 RF: 3 simvastatin 10 mg tablet See Rx Instructions .ROUTE .COMPLEX Qty: 90 RF: 3 metoprolol tartrate 25 mg tablet 12.5 mg PO BID Qty: 90 RF: 3 Eliquis 5 mg tablet See Rx Instructions .ROUTE .COMPLEX Qty: 180 RF: 3 Primary Care Provider: Von Roach Referrals: Von Roach DO [Primary Care Provider] - Disposition Disposition: Transfer to Another Type F
--- NOTE | 2021-05-25 18:10 | NURSING ---
[facility] GENERAL ROOM [id number] NURSE TO NURSE [phone]
[2021-05-25 18:15] VITALS: BP 135/65; PULSE 59; RESP 15; O2SAT 98
--- NOTE | 2021-05-25 18:15 | NURSING ---
CALLED [facility], ETA IS 45 MIN
== END 2021-05-25 18:53 | disposition other institution (70) ==
PROVIDERS: Emergency Medicine; Emergency Provider Emergency Medicine; PCP Family Medicine
DX: K85.90 Acute pancreatitis without necrosis or infection, unspecified (principal); K83.1 Obstruction of bile duct; I25.10 Atherosclerotic heart disease of native coronary artery without angina pectoris; Z95.5 Presence of coronary angioplasty implant and graft; Z87.891 Personal history of nicotine dependence
CPT/HCPCS: 74177; 80053; 80076; 81001; 83690; 85025; 96361; 96374; 96375; 96376; 99285; J7030; Q9967; A4216; J2405

== ENCOUNTER 2021-06-08 12:47 | Emergency (ER) | payer MEDICARE, SELFPAY ==
[2021-06-08 12:47] VITALS: BP 134/94; PULSE 58; RESP 16; TEMP 36.2; O2SAT 98; BMI 31.0
--- NOTE | 2021-06-08 13:05 | EDS_ITS ---
HPI History of Present Illness Chief Complaint: Abd Pain Narrative Narrative: 76-year-old male presenting with right-sided abdominal pain. He states he was diagnosed with stage IV pancreatic cancer. He states he was diagnosed with this [address] [facility]. Patient states he has followed up with Dr. Jasmine who plans to start him on chemotherapy next week. He called the office today because he was nauseous. He stated he had right- sided abdominal pain which is not changed. Given this he was referred to the ED. Patient states that his pain is about the same but that he is very nauseous. He also states he had a pancreatic stent placed when he was in [facility]. He states this helped with the nausea initially but is getting worse. Patient denies a fever or chills. He denies urinary complaints. He does admit to some constipation. Patient is anticoagulated on Eliquis for history of A. fib. [facility] Medical History Atherosclerosis of [place] coronary artery of [place] heart without angina pectoris Atypical chest pain BPH (benign prostatic hyperplasia) CKD (chronic kidney disease) Daytime somnolence Dizziness Essential hypertension GERD (gastroesophageal reflux disease) Hyperlipidemia with target low density lipoprotein (LDL) cholesterol less than 70 mg/dL Hypoalbuminemia Hypocalcemia Impaired fasting glucose Near syncope Other watermelon inspector (current) drug therapy Pancreatic cancer Paroxysmal atrial fibrillation Presence of stent in coronary artery (~09/24/13) Pure hypercholesterolemia Schatzki's ring Home Medications omeprazole 40 mg PO DAILY 10/01/17 [History Last Taken 10/01/17] terazosin 10 mg PO QHS 10/01/17 [History Last Taken 09/30/17] artificial tears(hypromellose) 10 gm OP QHS #10 gel..gram. 07/08/20 [Rx Last Taken Unknown] simvastatin 10 mg tablet See Rx Instructions .ROUTE .COMPLEX #90 tab 11/10/20 [Rx Last Taken Unknown] metoprolol tartrate 25 mg tablet 12.5 mg PO BID #90 tab 02/07/21 [Rx Last Taken Unknown] Sennosides [Senna] 8.6 mg PO QHS #10 tablet 02/21/21 [Rx Last Taken Unknown] apixaban 5 mg tablet See Rx Instructions .ROUTE .COMPLEX #180 tab 05/11/21 [Rx Last Taken Unknown] amiodarone 200 mg tablet See Rx Instructions .ROUTE .COMPLEX #45 tab 06/07/21 [Rx Last Taken Unknown] ondansetron HCl [Zofran] 4 mg PO Q8H PRN #30 tab 06/08/21 [Rx Last Taken Unknown] Allergy/AdvReac Type Severity Reaction Status Date / Time No Known Allergies Allergy Verified 06/08/21 12:49 Family History Mother Cancer Father Myocardial infarction Brother Myocardial infarction Brother Myocardial infarction Brother Myocardial infarction Brother Cancer Sister Myocardial infarction Sister Cancer Surgical History History of appendectomy History of appendectomy History of back surgery History of cholecystectomy History of cholecystectomy History of tonsillectomy History of tonsillectomy Presence of coronary angioplasty implant and graft (~09/24/13) Social History Smoking Status: Never smoker how long ago did patient quit smokin years ago alcohol intake: current alcohol intake frequency: holidays/special occasions only Alcohol type: beer and wine substance use type: does not use caffeine: Yes Type: coffee Number of servings: 1 what type of physical activity do you participate in: none ROS ROS ED Constitutional Constitutional ED: Denies chills or fever(s) Eyes Eyes: Denies blurry vision or diplopia ENT ENT ED: Denies rhinorrhea or sore throat Cardiovascular Cardiovascular: Denies chest pain, palpitations or racing heartbeat Respiratory/Chest Respiratory/Chest: Denies cough or dyspnea Gastrointestinal Gastrointestinal: Reports abdominal pain, constipation, nausea and vomiting Genitourinary Genitourinary ED: Denies dysuria or hematuria Musculoskeletal Musculoskeletal: Denies arthralgias or myalgias Integumentary Denies abscess or rash Neurologic Neurologic: Denies headache(s) or paresthesias EXAM Physical Exam Const Vital Signs: 06/08/21 12:47 Temperature 97.2 F L Temperature Source Temporal Pulse Rate 58 L Respiratory Rate 16 Blood Pressure 134/94 H Blood Pressure Mean 107 Pulse Ox 98 Oxygen Delivery Method Room Air Positive obese General Appearance ED: NAD Nutritional Appearance: obese HEENT Reports moist mucous membranes Negative for trauma Eyes PERRL and EOMs intact bilaterally General Eye ED: Negative for scleral icterus Resp normal respiratory effort and clear to auscultation bilaterally Cardio regular rate and regular rhythm GI GI Narrative: Tenderness to palpation to the right upper and lower quadrants. Left-sided abdomen is nontender. Neuro oriented x3 and CN's II-XII intact bilaterally Sensorium / Orientation: alert Psych mental status grossly normal Skin no rashes or lesions noted and no wounds General Skin Exam: Negative for jaundice MDM MDM MDM Narrative Medical decision making narrative: Patient presenting with nausea and vomiting. He does have stage IV pancreatic cancer. He had a CT of the abdomen pelvis done yesterday which I was able to review under Clinisync which did not show anything acutely changed. Patient's blood work here today shows that his liver enzymes have improved. Renal function and electrolytes are stable. White blood cell count is 7.4. Hemoglobin 12.7. Platelets 373. Patient given Zofran for nausea as he did not have any significant change in his pain and did not want any pain medication. On reevaluation patient felt improved and wished to go home with nausea medication. He will be prescribed Zofran. He is to follow-up with Dr. Jasmine. Impression: 1. History of pancreatic cancer stage IV 2. Nausea vomiting Lab Data Labs: Laboratory Results - last 24 hr 06/08/21 06/08/21 13:10 13:10 WBC 7.4 RBC 3.93 L Hgb 12.7 L Hct 38.2 L MCV 97.2 H MCH 32.3 H MCHC 33.2 RDW Std Deviation 48.5 H RDW Coeff of Harinder 13.4 Plt Count 373 MPV 9.9 Immature Gran % (Auto) 0.400 Neut % (Auto) 75.5 H Lymph % (Auto) 14.2 L [place] % (Auto) 8.0 Eos % (Auto) 1.4 Baso % (Auto) 0.5 Absolute Neuts (auto) 5.6 Absolute Lymphs (auto) 1.05 Nucleated RBC % 0 Sodium 137 Potassium 4.9 Chloride 105 Carbon Dioxide 23.0 Anion Gap 9 BUN 22 H Creatinine 1.33 H Estim Creat Clear Calc 45.00 Est GFR (MDRD) Af Amer 67 Est GFR (MDRD) Non-Af 55 L BUN/Creatinine Ratio 16.5 Glucose 137 H Calcium 8.9 Total Bilirubin 1.70 H Direct Bilirubin 1.19 H AST 64 H ALT 106 H Alkaline Phosphatase 67 Total Protein 7.7 Albumin 2.8 L Globulin 4.9 H Lipase 172 Discharge Plan Triage Chief Complaint: Abd Pain ED Provider: Serge Farr Dx/Rx/DC Orders Instructions: What Is Pancreatic Cancer?, ED Vomiting (Adult) Prescriptions: New ondansetron HCl [Zofran] 4 mg tablet 4 mg PO Q8H PRN (Reason: nausea and vomiting) Qty: 30 RF: 0 No Action omeprazole 20 MG capsule 40 mg PO DAILY RF: 0 terazosin 10 MG capsule 10 mg PO QHS RF: 0 artificial tears(hypromellose) 10 GM gel 10 gm OP QHS Qty: 10 RF: 0 Sennosides [Senna] 8.6 MG tablet 8.6 mg PO QHS Qty: 10 RF: 0 simvastatin 10 mg tablet See Rx Instructions .ROUTE .COMPLEX Qty: 90 RF: 3 metoprolol tartrate 25 mg tablet 12.5 mg PO BID Qty: 90 RF: 3 Eliquis 5 mg tablet See Rx Instructions .ROUTE .COMPLEX Qty: 180 RF: 3 amiodarone 200 mg tablet See Rx Instructions .ROUTE .COMPLEX Qty: 45 RF: 3 Primary Care Provider: Von Roach Referrals: Von Roach DO [Primary Care Provider] - Luis Jasmine DO [STAFF PHYSICIAN] - As soon as possible Disposition Disposition: Home, Self Care
[2021-06-08] MEDS: Ondansetron 4 MG/2 ML Vial IV (13:12)
[2021-06-08 13:18] LABS: Absolute Lymphocyte Count 1.05 X10^3/uL (0.83-4.51); Absolute Neutrophil Count 5.6 X10^3/uL (2.0-7.7); Basophil# 0.04 X10^3/uL; Basophil% 0.5 % (0-1); Eosinophils% 1.4 % (0-5); Hematocrit 38.2 % (40-54); Hemoglobin 12.7 g/dL (13.0-16.5); Lymphocyte # 1.05 X10^3/ul (0.83-4.51); Lymphocyte % 14.2 % (19-41); Mean Corp Hgb Conc 33.2 g/dL (32-36); Mean Corpuscular Hgb 32.3 pg (27.0-32.0); Mean Corpuscular Volume 97.2 fL (80-94); Mean Platelet Vol. 9.9 fl (6.2-12.0); Monocyte# 0.59 X10^3/uL; NRBC Flagged by Analyzer 0 % (0-5); Neutrophil # 5.58 X10^3/uL (2.7-7.7); Neutrophil % 75.5 % (47-70); Platelet Count 373 K/mm3 (150-450); RBC Distribution Width CV 13.4 % (11.6-14.6); RBC Distribution Width SD 48.5 fl (35.1-43.9); Red Blood Count 3.93 M/mm3 (4.6-6.2); White Blood Count 7.4 K/mm3 (4.4-11.0)
[2021-06-08 13:34] LABS: AST(SGOT) 64 U/L (15-37); Alanine Aminotransfer ALT/SGPT 106 U/L (16-61); Albumin, Serum 2.8 g/dL (3.2-5.0); Alkaline Phosphatase 67 U/L (45-117); Anion Gap 9 (5-15); BUN 22 mg/dL (7-18); BUN/Creat Ratio 16.5 RATIO (10-20); Bilirubin, Direct 1.19 mg/dL (0.00-0.30); Calcium,Total 8.9 mg/dL (8.5-10.1); Chloride 105 mmol/L (98-107); Creatinine, Serum 1.33 mg/dL (0.70-1.30); EST Glomerular Filtration Rate 55 mL/min (>60); Est Glom Filt Rate - Afr Amer 67 mL/min (>60); Globulin 4.9 g/dL (2.2-4.2); Glucose 137 mg/dL (74-106); Lipase 172 U/L (73-393); Potassium 4.9 mmol/L (3.5-5.1); Protein, Total 7.7 g/dL (6.4-8.2); Sodium Level 137 mmol/L (136-145)
[2021-06-08 15:18] VITALS: BP 130/80; PULSE 84; RESP 18; O2SAT 96
== END 2021-06-08 15:21 | disposition home or self-care (01) ==
PROVIDERS: Emergency Provider Student in an Organized Health Care Education/Training Program; PCP Family Medicine
DX: C25.9 Malignant neoplasm of pancreas, unspecified (principal); R11.2 Nausea with vomiting, unspecified; E66.9 Obesity, unspecified; I25.10 Atherosclerotic heart disease of native coronary artery without angina pectoris; I12.9 Hypertensive chronic kidney disease with stage 1 through stage 4 chronic kidney disease, or unspecified chronic kidney disease; N18.9 Chronic kidney disease, unspecified; I48.0 Paroxysmal atrial fibrillation; K21.9 Gastro-esophageal reflux disease without esophagitis; N40.0 Benign prostatic hyperplasia without lower urinary tract symptoms; E78.5 Hyperlipidemia, unspecified; E78.00 Pure hypercholesterolemia, unspecified; Z79.01 Long term (current) use of anticoagulants; Z79.899 Other long term (current) drug therapy; Z87.891 Personal history of nicotine dependence; Z95.5 Presence of coronary angioplasty implant and graft
CPT/HCPCS: 80048; 80076; 83690; 85025; 96374; 99283; A4216; J2405

== ENCOUNTER 2021-06-26 15:11 | Emergency (ER) | payer MEDICARE, SELFPAY ==
[2021-06-26] VITALS (7 sets, daily range): BP systolic 116–136; BP diastolic 62–70; PULSE 64–80; RESP 16–18; TEMP 36.4–37.2; O2SAT 96–98; BMI 29.9
--- NOTE | 2021-06-26 15:42 | CT_ITS ---
INDICATION: abdominal pain EXAMINATION: CT Abdomen And Pelvis W/ Contrast Injection TECHNIQUE: Helically acquired images were obtained of the abdomen and pelvis after IV contrast. A radiation dose optimization technique was used for this scan. IV Contrast dosage and agent: IV 100mL [id number] Oral contrast: None. COMPARISON: 05/25/2021. FINDINGS: Visualized lung bases: Unremarkable Liver: Scattered subcentimeter hypodense lesions are too small characterize, but slightly increased in size when compared to prior. There is pneumobilia. Biliary stent is in place. Gallbladder: Surgically absent. Spleen: Unremarkable Pancreas: There is persistent main pancreatic duct dilatation. Adrenal Glands: Unremarkable Kidneys: Unchanged bilateral renal cysts. Vasculature: Moderate aortoiliac atherosclerotic disease. GI Tract: Scattered diverticula throughout the colon without evidence of inflammation. Submucosal fat infiltration of most of the colon indicative of chronic inflammatory bowel disease. Lymphadenopathy: None Peritoneum: No ascites. Bladder: Unremarkable Reproductive organs: Unremarkable Bones/Soft tissues: Mild scattered degenerative changes of the visualized spine. CT/Abdomen/Pelvis W IV Cont ONLY IMPRESSION: No acute abnormalities in the abdomen or pelvis. Slight increase in size of scattered subcentimeter hypodense lesions throughout the liver. These could represent metastatic disease. Recommend close attention on follow-up imaging. Submucosal fat infiltration of most of the colon indicative of chronic inflammatory bowel disease. Diverticulosis without evidence of diverticulitis. New biliary stent is in place with pneumobilia. Persistent dilatation of the main pancreatic duct. Electronically Signed: Devon David MD at 18:01 EDT Tel , Service support ,
[2021-06-26] MEDS: Morphine 4 MG/ML Syringe IV ×2 (15:58→20:14)
[2021-06-26] MEDS: Ondansetron 4 MG/2 ML Vial IV ×2 (15:58→21:31)
[2021-06-26 16:20] LABS: Bacteria 0 SEEN /hpf (None Seen); Mucous, Urine 0 SEEN /hpf (<or=2+); Red Blood Cells-Urine 0 SEEN /hpf (0-5)
[2021-06-26 16:22] LABS: Absolute Lymphocyte Count 0.49 X10^3/uL (0.83-4.51); Basophil# 0.01 X10^3/uL; Basophil% 0.6 % (0-1); Eosinophil# 0.07 X10^3/uL; Eosinophils% 4.2 % (0-5); Hematocrit 31.5 % (40-54); Hemoglobin 10.5 g/dL (13.0-16.5); Lymphocyte # 0.49 X10^3/ul (0.83-4.51); Lymphocyte % 29.7 % (19-41); Mean Corp Hgb Conc 33.3 g/dL (32-36); Mean Corpuscular Hgb 32.4 pg (27.0-32.0); Mean Corpuscular Volume 97.2 fL (80-94); Mean Platelet Vol. 10.6 fl (6.2-12.0); Monocyte# 0.06 X10^3/uL; Monocyte% 3.6 % (0-10); NRBC Flagged by Analyzer 0 % (0-5); Neutrophil # 1.02 X10^3/uL (2.7-7.7); Neutrophil % 61.9 % (47-70); POSITIVE DIFFERENTIAL YES; POSITIVE MORPHOLOGY YES; Platelet Count 169 K/mm3 (150-450); RBC Distribution Width CV 12.9 % (11.6-14.6); RBC Distribution Width SD 45.9 fl (35.1-43.9); Red Blood Count 3.24 M/mm3 (4.6-6.2); White Blood Count 1.7 K/mm3 (4.4-11.0)
[2021-06-26 16:27] LABS: Color, Urine Yellow (Yellow); Glucose, Dipstick Normal (Normal); Ketone-Dipstick Negative (Negative); Leukocyte Esterase-Dipstick 25 /ul (Negative); Nitrite-Dipstick Negative (Negative); Occult Blood-Urine Negative /ul (Negative); Protein-Dipstick 15 mg/dl (Negative); Urine Bilirubin Dipstick Negative (Negative); Urine Clarity Sl. Cloudy (Clear); Urine Urobilinogen 8 mg/dl (Normal)
[2021-06-26 16:30] LABS: Differential Indicated SCAN CRITERIA MET
[2021-06-26 16:33] LABS: AST(SGOT) 20 U/L (15-37); Alanine Aminotransfer ALT/SGPT 81 U/L (16-61); Albumin, Serum 2.2 g/dL (3.2-5.0); Alkaline Phosphatase 32 U/L (45-117); Anion Gap 9 (5-15); BUN 19 mg/dL (7-18); BUN/Creat Ratio 18.3 RATIO (10-20); Bilirubin, Direct 0.56 mg/dL (0.00-0.30); Calcium,Total 8.5 mg/dL (8.5-10.1); Chloride 101 mmol/L (98-107); Creatinine, Serum 1.04 mg/dL (0.70-1.30); EST Glomerular Filtration Rate 74 mL/min (>60); Est Glom Filt Rate - Afr Amer 89 mL/min (>60); Estimated Creatinine Clearance 57.55 ml/min; Globulin 4.2 g/dL (2.2-4.2); Glucose 138 mg/dL (74-106); Lipase 82 U/L (73-393); Potassium 4.1 mmol/L (3.5-5.1); Protein, Total 6.4 g/dL (6.4-8.2); Sodium Level 135 mmol/L (136-145)
[2021-06-26 16:41] LABS: Squamous Epithelial Cells - UA 0-5 SEEN /hpf (0-5); White Blood Cells 0-5 SEEN /hpf (0-5)
[2021-06-26 17:20] LABS: Differential Comment SCANNED; Platelet Estimate ADEQUATE (ADEQ)
[2021-06-26 17:21] LABS: Red Cell Morphology NORM C+C NORMAL (NORM C&C)
--- NOTE | 2021-06-26 17:22 | ED.VIS.GI ---
HPI HPI - GI History of Present Illness Chief Complaint: Abd Pain Narrative Narrative: Patient with history of pancreatic cancer who currently sees Dr. Jasmine and has done 2 rounds of chemotherapy presenting with abdominal pain on the right upper and right flank which is similar to his previous abdominal pain patient states that he has developed bloody stools. Patient is anticoagulated on Eliquis for history of atrial fibrillation. Patient states that he has had some dark black stools as well. Patient denies fever or chills. He has nausea without vomiting. [facility] Medical History (Updated 06/26/21 @ 21:[address] Serge Farr, DO) Atherosclerosis of [place] coronary artery of [place] heart without angina pectoris Atypical chest pain BPH (benign prostatic hyperplasia) CKD (chronic kidney disease) Daytime somnolence Dizziness Essential hypertension GERD (gastroesophageal reflux disease) Hyperlipidemia with target low density lipoprotein (LDL) cholesterol less than 70 mg/dL Hypoalbuminemia Hypocalcemia Impaired fasting glucose Near syncope Other termite control service representative (current) drug therapy Pancreatic cancer Paroxysmal atrial fibrillation Presence of stent in coronary artery (~09/24/13) Pure hypercholesterolemia Schatzki's ring Home Medications omeprazole 40 mg PO DAILY 10/01/17 [History Last Taken 10/01/17] terazosin 10 mg PO QHS 10/01/17 [History Last Taken 09/30/17] artificial tears(hypromellose) 10 gm OP QHS #10 gel..gram. 07/08/20 [Rx Last Taken Unknown] simvastatin 10 mg tablet See Rx Instructions .ROUTE .COMPLEX #90 tab 11/10/20 [Rx Last Taken Unknown] metoprolol tartrate 25 mg tablet 12.5 mg PO BID #90 tab 02/07/21 [Rx Last Taken Unknown] Sennosides [Senna] 8.6 mg PO QHS #10 tablet 02/21/21 [Rx Last Taken Unknown] apixaban 5 mg tablet See Rx Instructions .ROUTE .COMPLEX #180 tab 05/11/21 [Rx Last Taken Unknown] amiodarone 200 mg tablet See Rx Instructions .ROUTE .COMPLEX #45 tab 06/07/21 [Rx Last Taken Unknown] ondansetron HCl [Zofran] 4 mg PO Q8H PRN #30 tab 06/08/21 [Rx Last Taken Unknown] morphine 15 mg PO BID 06/26/21 [History Last Taken Unknown] ondansetron HCl [Zofran] 4 mg PO Q8H PRN #20 tab 06/26/21 [Rx Last Taken Unknown] oxycodone 10 mg PO Q4H PRN PRN 06/26/21 [History Last Taken Unknown] oxycodone-acetaminophen [Percocet] 1 tab PO Q6H PRN 3 Days #12 tab 06/26/21 [Rx Last Taken Unknown] Allergy/AdvReac Type Severity Reaction Status Date / Time No Known Allergies Allergy Verified 06/08/21 12:49 Family History Mother Cancer Father Myocardial infarction Brother Myocardial infarction Brother Myocardial infarction Brother Myocardial infarction Brother Cancer Sister Myocardial infarction Sister Cancer Surgical History History of appendectomy History of appendectomy History of back surgery History of cholecystectomy History of cholecystectomy History of tonsillectomy History of tonsillectomy Presence of coronary angioplasty implant and graft (~09/24/13) Social History Smoking Status: Never smoker how long ago did patient quit smokin years ago alcohol intake: current alcohol intake frequency: holidays/special occasions only Alcohol type: beer and wine substance use type: does not use caffeine: Yes Type: coffee Number of servings: 1 what type of physical activity do you participate in: none ROS ROS ED Constitutional Constitutional ED: Denies chills or fever(s) ENT ENT ED: Denies rhinorrhea or sore throat Cardiovascular Cardiovascular: Denies chest pain, palpitations or racing heartbeat Respiratory/Chest Respiratory/Chest: Denies cough or dyspnea Gastrointestinal Gastrointestinal: Reports abdominal pain, melena, nausea and other Details: Blood in stool Genitourinary Genitourinary ED: Reports hematuria; Denies dysuria Musculoskeletal Musculoskeletal: Denies arthralgias or myalgias Integumentary Denies Abrasions or rash Neurologic Neurologic: Denies headache(s) or paresthesias EXAM Physical Exam Const Vital Signs: 06/26/21 15:11 06/26/21 15:13 06/26/21 18:03 Temperature 97.6 F L 98.9 F 98.5 F Temperature Source Temporal Temporal Temporal Pulse Rate 71 71 80 Respiratory Rate 16 18 16 Blood Pressure 116/65 116/65 121/69 H Blood Pressure Mean 82 82 86 Pulse Ox 96 97 96 Oxygen Delivery Method Room Air Room Air Room Air 06/26/21 20:07 06/26/21 20:49 Temperature 97.7 F L Temperature Source Oral Pulse Rate 64 74 Respiratory Rate 16 16 Blood Pressure 136/70 H 128/64 H Blood Pressure Mean 92 85 Pulse Ox 98 98 Oxygen Delivery Method Nasal Cannula Room Air Positive obese General Appearance ED: NAD; Negative for pallor Nutritional Appearance: obese HEENT Reports moist mucous membranes normocephalic and atraumatic Eyes PERRL General Eye ED: Negative for pale conjunctiva or scleral icterus Resp normal respiratory effort and clear to auscultation bilaterally Cardio regular rate and regular rhythm GI Palpation: tender epigastric and RLQ Neuro CN's II-XII intact bilaterally and moves all extremities Sensorium / Orientation: alert, oriented to person, oriented to place and oriented to time Motor Exam: strength 5/5 throughout Psych mental status grossly normal and thought process normal Skin General Skin Exam: Negative for jaundice or pallor Lesions: no lesions Rashes: no rashes MDM MDM MDM Narrative Medical decision making narrative: Patient presenting with abdominal pain and GI bleed. He has of mixed blood in his stool. I did not send it for Hemoccult feel I can see blood. CBC shows his white blood cell count is 1.7, hemoglobin 10.5 which is lower than 12.7 previously. Hematocrit 31.5. Platelets are 169. Renal function and electrolytes are normal. Total bilirubin is 1.10 which is lower than previously direct bilirubin is also lower. Lipase within normal limits. Patient given 2 doses of morphine with some relief however required fentanyl for pain control. He is given Zofran for nausea. Urinalysis is negative. CT of the abdomen pelvis with IV contrast shows slight increase in size of scattered subcentimeter hypodense lesions throughout the liver that could represent metastatic disease and new biliary stent is in place with pneumobilia. Persistent dilatation of the main pancreatic duct however the lipase is normalized. Patient does have GI bleed but his hemoglobin has dropped nearly [address] Durham who did not want to keep the patient at [facility] due to his complications. Attempted to contact [facility] where he had his stent placed however they do not have any beds. On reevaluation the patient states that he wants to be hospice. He just wants to go home and be comfortable. I feel this is reasonable given his diagnosis. Patient did have a chance to speak with hospice and they will come to his house in the morning. I will bridge him with Percocet until tomorrow morning that he will be discharged home with a prescription filled. He is counseled on new or worsening conditions that he needs to return for. Patient states that he is already DNR comfort care only and does not want any advanced measures. Impression: 1. Metastatic pancreatitis 2. GI bleed 3. Abdominal pain Lab Data Attestation: I reviewed the patient's lab results. Labs: Laboratory Results - last 24 hr 06/26/21 06/26/21 06/26/21 15:55 15:55 15:55 WBC 1.7 L RBC 3.24 L Hgb 10.5 L Hct 31.5 L MCV 97.2 H MCH 32.4 H MCHC 33.3 RDW Std Deviation 45.9 H RDW Coeff of Harinder 12.9 Plt Count 169 MPV 10.6 Immature Gran % (Auto) 0.000 Neut % (Auto) 61.9 Lymph % (Auto) 29.7 [place] % (Auto) 3.6 Eos % (Auto) 4.2 Baso % (Auto) 0.6 Absolute Neuts (auto) 1.0 L Absolute Lymphs (auto) 0.49 L Nucleated RBC % 0 Differential Comment SCANNED Diff Path Review May foll Platelet Estimate ADEQUATE RBC Morphology NORM C+C Sodium 135 L Potassium 4.1 Chloride 101 Carbon Dioxide 25.0 Anion Gap 9 BUN 19 H Creatinine 1.04 Estim Creat Clear Calc 57.55 Est GFR (MDRD) Af Amer 89 Est GFR (MDRD) Non-Af 74 BUN/Creatinine Ratio 18.3 Glucose 138 H Calcium 8.5 Total Bilirubin 1.10 H Direct Bilirubin 0.56 H AST 20 ALT 81 H Alkaline Phosphatase 32 L Total Protein 6.4 Albumin 2.2 L Globulin 4.2 Lipase 82 Urine Color Urine Clarity Urine pH Ur Specific [place] Urine Protein Urine Glucose (UA) Urine Ketones Urine Occult Blood Urine Nitrite Urine Bilirubin Urine Urobilinogen Ur Leukocyte Esterase Urine RBC Urine WBC Ur Squamous Epith Cells Urine Bacteria Urine Mucus Blood Type O POSITIVE Antibody Screen NEGATIVE 06/26/21 16:04 WBC RBC Hgb Hct MCV MCH MCHC RDW Std Deviation RDW Coeff of Harinder Plt Count MPV Immature Gran % (Auto) Neut % (Auto) Lymph % (Auto) [place] % (Auto) Eos % (Auto) Baso % (Auto) Absolute Neuts (auto) Absolute Lymphs (auto) Nucleated RBC % Differential Comment Diff Path Review Platelet Estimate RBC Morphology Sodium Potassium Chloride Carbon Dioxide Anion Gap BUN Creatinine Estim Creat Clear Calc Est GFR (MDRD) Af Amer Est GFR (MDRD) Non-Af BUN/Creatinine Ratio Glucose Calcium Total Bilirubin Direct Bilirubin AST ALT Alkaline Phosphatase Total Protein Albumin Globulin Lipase Urine Color Yellow Urine Clarity Sl. Cloudy Urine pH 7.0 Ur Specific [place] 1.010 Urine Protein 15 H Urine Glucose (UA) Normal Urine Ketones Negative Urine Occult Blood Negative Urine Nitrite Negative Urine Bilirubin Negative Urine Urobilinogen 8 H Ur Leukocyte Esterase 25 H Urine RBC 0 SEEN Urine WBC 0-5 SEEN Ur Squamous Epith Cells 0-5 SEEN Urine Bacteria 0 SEEN Urine Mucus 0 SEEN Blood Type Antibody Screen Radiography Diagnostic Testing: Radiology Impression Abdomen/Pelvis CT 06/26/21 15:42 IMPRESSION: No acute abnormalities in the abdomen or pelvis. Slight increase in size of scattered subcentimeter hypodense lesions throughout the liver. These could represent metastatic disease. Recommend close attention on follow-up imaging. Submucosal fat infiltration of most of the colon indicative of chronic inflammatory bowel disease. Diverticulosis without evidence of diverticulitis. New biliary stent is in place with pneumobilia. Persistent dilatation of the main pancreatic duct. Electronically Signed: Devon David MD at 18:01 EDT Tel , Service support , Discharge Plan Triage Chief Complaint: Abd Pain ED Provider: Serge Farr Dx/Rx/DC Orders Instructions: What Is Hospice?, Pancreatic Cancer Tx Dc Prescriptions: New oxycodone-acetaminophen [Percocet] 5-325 mg tablet 1 tab PO Q6H PRN (Reason: pain) 3 Days Qty: 12 RF: 0 ondansetron HCl [Zofran] 4 mg tablet 4 mg PO Q8H PRN (Reason: nausea and vomiting) Qty: 20 RF: 0 No Action omeprazole 20 MG capsule 40 mg PO DAILY RF: 0 terazosin 10 MG capsule 10 mg PO QHS RF: 0 artificial tears(hypromellose) 10 GM gel 10 gm OP QHS Qty: 10 RF: 0 Sennosides [Senna] 8.6 MG tablet 8.6 mg PO QHS Qty: 10 RF: 0 ondansetron HCl [Zofran] 4 mg tablet 4 mg PO Q8H PRN (Reason: nausea and vomiting) Qty: 30 RF: 0 morphine 15 mg tablet extended release 15 mg PO BID RF: 0 oxycodone 10 mg tablet 10 mg PO Q4H PRN PRN (Reason: Pain) RF: 0 simvastatin 10 mg tablet See Rx Instructions .ROUTE .COMPLEX Qty: 90 RF: 3 metoprolol tartrate 25 mg tablet 12.5 mg PO BID Qty: 90 RF: 3 Eliquis 5 mg tablet See Rx Instructions .ROUTE .COMPLEX Qty: 180 RF: 3 amiodarone 200 mg tablet See Rx Instructions .ROUTE .COMPLEX Qty: 45 RF: 3 Primary Care Provider: Von Roach Referrals: Von Roach DO [Primary Care Provider] - Luis Jasmine DO [STAFF PHYSICIAN] - As soon as possible Disposition Disposition: Home, Self Care
--- NOTE | 2021-06-26 20:32 | ED.RN ---
pt informed this nurse that he wants to go home under hospice care, notified and weigh and charge worker, hospice to be called.
--- NOTE | 2021-06-26 20:36 | ED.RN ---
SPOKE WITH HOSPICE NURSE CAREER SERVICES OFFICER AT THIS TIME. EXPLAINED PATIENT CASE TO HER AND PATIENT WISHES. AT THIS TIME PATIENT NO LONGER WANTS TO MADE COMFORTABLE. HOSPICE NURSE MADE AWARE. VERBAL UNDERSTANDING OF CASE GIVEN. AT THIS TIME THEIR ADMISSION TEAM WILL FOLLOW UP IN THE MORNING WITH THE PATIENT. CHART TO BE FAXED TO THEM UPON DISCHARGE
--- NOTE | 2021-06-26 20:40 | ED.RN ---
UPDATED DR. RUDD AT THIS TIME ABOUT PATIENT STATUS AND PLAN OF CARE. WENT IN AND SPOKE WITH THE PATIENT AND EXPLAINED PLAN OF CARE AND RELAYED INFORMATION FROM HOSPICE. PATIENT AGREES TO PLAN AT THIS TIME. PATIENT STILL REQUESTING TO GO HOME AND JUST TO BE COMFORTABLE. EXPLAINED TO PATIENT THAT WE CAN SPEAK TO ABOUT PAIN MEDICATION UPON DISCHARGE. PATIENT IS COMFORTABLE WITH THIS PLAN AND AGREES. FAMILY IN THE ROOM AND UPDATED AT THE SAME TIME. DR. WISEMAN MADE AWARE AT THIS TIME
[2021-06-26] MEDS: fentaNYL 100 MCG/2 ML Ampul 50 MCG IV (21:26)
[2021-06-27 14:54] LABS: Pathologist Review Reviewed
== END 2021-06-26 22:13 | disposition home or self-care (01) ==
PROVIDERS: Emergency Provider Student in an Organized Health Care Education/Training Program; PCP Family Medicine
DX: C25.9 Malignant neoplasm of pancreas, unspecified (principal); K92.2 Gastrointestinal hemorrhage, unspecified; R10.9 Unspecified abdominal pain; I25.10 Atherosclerotic heart disease of native coronary artery without angina pectoris; E78.00 Pure hypercholesterolemia, unspecified; E78.5 Hyperlipidemia, unspecified; I48.0 Paroxysmal atrial fibrillation; I10 Essential (primary) hypertension; N40.0 Benign prostatic hyperplasia without lower urinary tract symptoms; Z95.5 Presence of coronary angioplasty implant and graft; Z79.899 Other long term (current) drug therapy; Z79.01 Long term (current) use of anticoagulants
CPT/HCPCS: 74177; 80048; 80076; 81001; 83690; 85025; 86850; 86900; 86901; 96374; 96375; 96376; 99284; Q9967; A4216; J2405